=== PATIENT | female | born 1990 | race Caucasian/White ===

== ENCOUNTER 2017-12-13 07:12 | Emergency (ER) | payer OTHER ==
[2017-12-13] MEDS ORDERED: Lactated Ringers 1,000 ML IV ONE (07:24)
[2017-12-13] MEDS ORDERED: Ondansetron 4 MG/2 ML SDV IVPUSH ONE (07:25)
[2017-12-13] MEDS ORDERED: Ketorolac 30 MG/ML SDV IVPUSH ONE (07:25)
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
[2017-12-13 08:46] LABS: CHLORIDE,CL 105 mmol/L (98-107); SODIUM,NA 140 mmol/L (136-145)
--- NOTE | 2017-12-13 09:46 | CR ---
EXAMINATION: Portable chest radiograph. HISTORY: Shortness of breath. FINDINGS: The trachea is midline. The cardiomediastinal silhouette is within normal limits. No pulmonary infilt rates, effusions or pneumothorax. Osseous structures appear unremarkable. IMPRESSION: No acute cardiopulmonary process.
--- NOTE | 2017-12-13 09:52 | CT ---
EXAMINATION: Non contrast CT head. Coronal and sagittal reformats. HISTORY: Pain FINDINGS: No evidence of intra or extra axial hemorrhage, mass, midline shift, hydrocephalus or edema. No hypoattenuation changes in the major vascular territories to suggest acute infarct. No abnormal intracranial calcifications are detected. No evidence of substantial vascular calcificat ions. Paranasal sinuses and mastoid air cells are well aerated without substantial findings. Orbits and gl obes are symmetric. Moderate rightward deviation of the nasal septum with prominent shaunna bullosa wi thin the left turbinates. Pituitary fossa appears unremarkable. Calvarium is intact. No evidence of skull fracture. IMPRESSION: No acute intracranial findings.
--- NOTE | 2017-12-13 09:56 | CT ---
EXAMINATION: CT cervical spine HISTORY: Pain COMPARISON: None TECHNIQUE: Axial CT images obtained through the cervical spine without contrast. Coronal and sagittal reconstructions obtained. FINDINGS: The cervical spinal alignment is normal. The vertebral body heights and disc spaces appear well-maintained. There is no fracture or acute osseous abnormality. Bone mineralization and joint spa melva appear normal. Paravertebral soft tissues appear normal. Lung apices are clear. IMPRESSION: 1. Unremarkable cervical spine.
== END 2017-12-13 10:25 | disposition home or self-care (01) ==
LOC: MW.ED 07:12
DX: M62.838 Other muscle spasm (principal); R51 Headache; V59.9XXA Occupant (driver) (passenger) of pick-up truck or van injured in unspecified traffic accident, initial encounter
CPT/HCPCS: 36415; 70450; 71045; 72125; 80053; 81001; 81025; 85025; 96365; 96375; 99284; J1885; J2405; J7120; 99283

== ENCOUNTER 2020-01-04 06:08 | Emergency (ER) | payer SELFPAY ==
--- NOTE | 2020-01-04 06:41 | EDM.PDOC ---
ED HPI GENERAL MEDICAL PROBLEM - General Chief Complaint: Drug or Alcohol Abuse Stated Complaint: AMB Time Seen by Provider: 01/04/20 06:22 Source of Information: Reports: Patient, [employer] History Limitations: Reports: No Limitations - History of Present Illness Severity: Mild - Related Data Allergies Allergy/AdvReac Type Severity Reaction Status Date / Time No Known Allergies Allergy Verified 01/04/20 06:21 Home Meds: Home Meds . 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 Musculoskeletal History: Reports: None Neurological History: Reports: None Psychiatric History: Reports: None Endocrine/Metabolic History: Reports: None Hematologic History: Reports: None Immunologic History: Reports: None Oncologic (Cancer) History: Reports: None Dermatologic History: Reports: None - Infectious Disease History Infectious Disease History: Reports: None - Past Surgical History Head Surgeries/Procedures: Reports: None Social & Family History - Family History Family Medical History: Noncontributory - Tobacco Use Smoking Status *Q: Never Smoker - Caffeine Use Caffeine Use: Reports: None - Recreational Drug Use Recreational Drug Use: No ED ROS GENERAL - Review of Systems Review Of Systems: See Below Constitutional: Reports: No Symptoms HEENT: Reports: No Symptoms Respiratory: Reports: No Symptoms Cardiovascular: Reports: No Symptoms Endocrine: Reports: No Symptoms GI/Abdominal: Reports: No Symptoms : Reports: No Symptoms Musculoskeletal: Reports: No Symptoms Skin: Reports: No Symptoms Neurological: Reports: No Symptoms Psychiatric: Reports: No Symptoms Hematologic/Lymphatic: Reports: No Symptoms Immunologic: Reports: No Symptoms - Physical Exam Exam: See Below Exam Limited By: No Limitations General Appearance: Alert, WD/WN, No Apparent Distress Eye Exam: Bilateral Eye: Normal Fundi, Normal Inspection Ears: Normal External Exam, Normal Canal, Normal TMs Nose: Normal Inspection, Normal Mucosa Throat/Mouth: Normal Inspection, Normal Lips Head Exam: Atraumatic, Normocephalic Neck: Normal Inspection Respiratory/Chest: No Respiratory Distress, Lungs Clear, No Accessory Muscle Use Cardiovascular: Normal Peripheral Pulses, No JVD GI/Abdominal: Normal Bowel Sounds Neuro Exam (Abbreviated): Alert, Oriented, CN II-XII Intact Back Exam: Normal Inspection, Full Range of Motion Extremities: Normal Inspection, Normal Range of Motion Psychiatric: Normal Affect, Normal Mood Skin Exam: Warm, Intact Course - Vital Signs Last Recorded V/S: Last Vital Signs Temp 98.1 F 01/04/20 06:22 Pulse 81 01/04/20 06:43 Resp 14 01/04/20 06:43 BP 113/72 01/04/20 06:43 Pulse Ox 96 01/04/20 06:43 - Orders/Labs/Meds Orders: Active Orders 24 hr Category Date Time Status EKG Documentation Completion [RC] STAT Care 01/04/20 06:31 Active Labs: Laboratory Tests 01/04/20 01/04/20 01/04/20 Range/Units 06:38 06:38 06:38 WBC 7.38 (4.0-11.0) K/uL RBC 4.09 L (4.30-5.90) M/uL Hgb 12.3 (12.0-16.0) g/dL Hct 37.6 (36.0-46.0) % MCV 91.9 (80.0-98.0) fL MCH 30.1 (27.0-32.0) pg MCHC 32.7 (31.0-37.0) g/dL RDW Std Deviation 42.1 (28.0-62.0) fl RDW Coeff of Zaira 12 (11.0-15.0) % Plt Count 267 (150-400) K/uL MPV 10.10 (7.40-12.00) fL Neut % (Auto) 64.2 (48.0-80.0) % Lymph % (Auto) 24.3 (16.0-40.0) % [place] % (Auto) 6.8 (0.0-15.0) % Eos % (Auto) 4.2 (0.0-7.0) % Baso % (Auto) 0.5 (0.0-1.5) % Neut # (Auto) 4.7 (1.4-5.7) K/uL Lymph # (Auto) 1.8 (0.6-2.4) K/uL [place] # (Auto) 0.5 (0.0-0.8) K/uL Eos # (Auto) 0.3 (0.0-0.7) K/uL Baso # (Auto) 0.0 (0.0-0.1) K/uL Nucleated RBC % 0.0 /100WBC Nucleated RBCs # 0 K/uL Sodium 140 (136-145) mmol/L Potassium 3.7 (3.5-5.1) mmol/L Chloride 105 (98-107) mmol/L Carbon Dioxide 24.4 (21.0-32.0) mmol/L BUN 9 (7.0-18.0) mg/dL Creatinine 0.6 (0.6-1.0) mg/dL Est Cr Clr Drug Dosing TNP Estimated GFR (MDRD) > 60.0 ml/min Glucose 107 H (74-106) mg/dL Calcium 8.6 (8.5-10.1) mg/dL Total Bilirubin 0.6 (0.2-1.0) mg/dL AST 12 L (15-37) IU/L ALT 19 (14-63) IU/L Alkaline Phosphatase 51 (46-116) U/L Total Protein 6.9 (6.4-8.2) g/dL Albumin 3.6 (3.4-5.0) g/dL Globulin 3.3 (2.6-4.0) g/dL Albumin/Globulin Ratio 1.1 (0.9-1.6) HCG, Qual NEGATIVE (NEG) Salicylates 0.6 (0-20) mg/dL Acetaminophen <2.0 ug/mL Ethyl Alcohol <3 mg/dL Departure - Departure Time of Disposition: 07:17 Disposition: Home, Self-Care 01 Condition: Good Clinical Impression: Alcohol abuse - Discharge Information Referrals: PCP,None [Primary Care Provider] - Forms: ED Department Discharge Sepsis Event Note - Evaluation Sepsis Screening Result: No Definite Risk - Focused Exam Vital Signs: Vital Signs Temp Pulse Resp BP Pulse Ox 01/04/20 06:43 81 14 113/72 96 01/04/20 06:22 98.1 F 82 14 116/69 98 Date Exam was Performed: 01/04/20 Time Exam was Performed: 07:16 - My Orders Last 24 Hours: My Active Orders 01/04/20 06:31 EKG Documentation Completion [RC] STAT - Assessment/Plan Last 24 Hours: My Active Orders 01/04/20 06:31 EKG Documentation Completion [RC] STAT
[2020-01-04 07:10] LABS: BLOOD UREA NITROGEN,BUN 9 mg/dL (7.0-18.0); CARBON DIOXIDE,CO2 24.4 mmol/L (21.0-32.0); CHLORIDE,CL 105 mmol/L (98-107); GLUCOSE RANDOM 107 mg/dL (74-106); POTASSIUM,K 3.7 mmol/L (3.5-5.1); SODIUM,NA 140 mmol/L (136-145)
[2020-01-04 07:12] LABS: ACETAMINOPHEN <2.0 ug/mL
== END 2020-01-04 07:25 | disposition home or self-care (01) ==
LOC: MW.ED 06:08
DX: F10.10 Alcohol abuse, uncomplicated (principal)
CPT/HCPCS: 36415; 80053; 80307; 84703; 85025; 93005; 99283; 99284-25

== ENCOUNTER 2020-04-16 19:25 | Emergency (ER) | payer BC, OTHER ==
--- NOTE | 2020-04-16 19:52 | EDM.PDOC ---
ED HPI GENERAL MEDICAL PROBLEM - General Chief Complaint: Respiratory Problem Stated Complaint: SPOKE TO NURSE Time Seen by Provider: 04/16/20 19:28 Source of Information: Reports: Patient History Limitations: Reports: No Limitations - History of Present Illness INITIAL COMMENTS - FREE TEXT/NARRATIVE: HISTORY AND PHYSICAL: History of present illness: Patient is a 29-year-old female who presents to the emergency room today with complaints of sore throat, subjective fever and chills, body aches and shortness of breath. She states last week she and her had went to [place] and had been around multiple family members. She was informed a few days ago that 1 of those family members tested positive for COVID-19. 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 Patient denies any headache, change in vision, syncope or near syncope. Denies any chest pain, back pain or cough. Denies any abdominal pain, nausea, vomiting, diarrhea, constipation or dysuria. Denies any chance of . Patient has been eating and drinking appropriately. Review of systems: As per history of present illness and below otherwise all systems reviewed and negative. Past medical history: As per history of present illness and as reviewed below otherwise noncontr ibutory. Surgical history: As per history of present illness and as reviewed below otherwise noncontributory. Social history: See social history for further information Family history: As per history of present illness and as reviewed below otherwise noncontributory. Physical exam: General: Well-developed and well-nourished 29-year-old female. Alert and oriented. Nontoxic-appearing and in no acute distress. Vital signs are stable and have been reviewed by me. HEENT: Atraumatic, normocephalic, pupils equal and reactive bilaterally, negative for conjunctival pallor or scleral icterus, mucous membranes moist, TMs normal bilaterally, throat erythematous without exudate or soft tissue swelling, neck supple, nontender, trachea midline. No drooling or trismus noted. No meningeal signs. No hot potato voice noted. Lungs: Clear to auscultation, breath sounds equal bilaterally, chest nontender. Heart: S1S2, regular rate and rhythm without overt murmur Abdomen: Soft, nondistended, nontender. Skin: Intact, warm, dry. No lesions or rashes noted. Extremities: Atraumatic, moves all extremities per self without difficulty or deficits, negative for cords or calf pain. Neurovascular unremarkable. Neuro: Awake, alert, oriented. Cranial nerves II through XII unremarkable. Cerebellum unremarkable. Motor and sensory unremarkable throughout. Exam nonfocal. Notes: Patient's physical exam is generally unremarkable with the exception of mild erythema to the posterior oropharynx. Her diagnostics are negative. We discussed the need for follow-up. Patient is appropriate for discharge to home. Supportive care measures were reviewed and discussed. Voices understanding and is agreeable to plan of care. Denies any further questions or concerns at this time. Diagnostics: Chest x-ray, strep, COVID-19 Therapeutics: None Prescription: None Impression: Pharyngitis Encounter for COVID-19 testing Plan: 1. Your chest x-ray, Strep Screening and COVID-19 screening all were negative. Please continue to perform supportive care measures such as increasing your fluids, alternating Tylenol and ibuprofen and getting plenty of rest. 2. Follow-up with your primary care provider as we discussed. 3. Return to the emergency room as needed and as discussed. Definitive disposition and diagnosis as appropriate pending reevaluation and review of above. - Related Data Allergies Allergy/AdvReac Type Severity Reaction Status Date / Time No Known Allergies Allergy Verified 04/16/20 19:42 Home Meds: Home Meds . [No Known Home Meds] 12/13/17 [History] Past Medical History - Past Health History Medical/Surgical History: Denies Medical/Surgical History HEENT History: Reports: None Cardiovascular History: Reports: None Respiratory History: Reports: None Gastrointestinal History: Reports: None Genitourinary History: Reports: None MEDICATION SPECIALIST History: Reports: None Musculoskeletal History: Reports: None Neurological History: Reports: None Psychiatric History: Reports: None Endocrine/Metabolic History: Reports: None Hematologic History: Reports: None Immunologic History: Reports: None Oncologic (Cancer) History: Reports: None Dermatologic History: Reports: None - Infectious Disease History Infectious Disease History: Reports: None - Past Surgical History Head Surgeries/Procedures: Reports: None Social & Family History - Family History Family Medical History: Noncontributory - Tobacco Use Smoking Status *Q: Never Smoker Second Hand Smoke Exposure: No - Caffeine Use Caffeine Use: Reports: None - Recreational Drug Use Recreational Drug Use: No ED ROS GENERAL - Review of Systems Review Of Systems: Comprehensive ROS is negative, except as noted in HPI. ED EXAM, GENERAL - Physical Exam Exam: See Below (See dictation) Course - Vital Signs Last Recorded V/S: Last Vital Signs Temp 97.6 F 04/16/20 19:37 Pulse 80 04/16/20 19:37 Resp 18 04/16/20 19:37 BP 116/72 04/16/20 19:37 Pulse Ox 98 04/16/20 19:37 - Orders/Labs/Meds Orders: Active Orders 24 hr Category Date Time Status CULTURE STREP A CONFIRMATION [RM] Stat Lab 04/16/20 19:57 Results STREP SCRN A RAPID W CULT CONF [RM] Stat Lab 04/16/20 19:57 Results Labs: Laboratory Tests 04/16/20 Range/Units 19:57 COVID-19 (RISHI) NEGATIVE (NEGATIVE) Departure - Departure Time of Disposition: 20:27 Disposition: Home, Self-Care 01 Clinical Impression: Encounter for screening laboratory testing for COVID-19 virus Pharyngitis Qualifiers: Pharyngitis/tonsillitis etiology: unspecified etiology Qualified Code(s): J02.9 - Acute pharyngitis, unspecified - Discharge Information Instructions: Pharyngitis, [id number] Referrals: PCP,None [Primary Care Provider] - Forms: ED Department Discharge Additional Instructions: The following information is given to patients seen in the emergency department who are being discharged to home. This information is to outline your options for follow-up care. We provide all patients seen in our emergency department with a follow-up referral. The need for follow-up, as well as the timing and circumstances, are variable depending upon the specifics of your emergency department visit. If you don't have a primary care physician on staff, we will provide you with a referral. We always advise you to contact your personal physician following an emergency department visit to inform them of the circumstance of the visit and for follow-up with them and/or the need for any referrals to a consulting specialist. The emergency department will also refer you to a specialist when appropriate. This referral assures that you have the opportunity for follow-up care with a specialist. All of these measure are taken in an effort to provide you with optimal care, which includes your follow-up. Under all circumstances we always encourage you to contact your private physician who remains a resource for coordinating your care. When calling for follow-up care, please make the office aware that this follow-up is from your recent emergency room visit. If for any reason you are refused follow-up, please contact the [facility] Emergency Department at and asked to speak to the emergency department charge nurse. [facility] [address] [place] [address] [facility] [address] [place] [address] Thank you for choosing the [facility] emergency department in [place] for your medical needs today. It was a pleasure caring for you. You were seen in the emergency department for body aches, sore throat, shortness of breath and requesting a COVID-19 screening. 1. Your chest x-ray, Strep Screening and COVID-19 screening all were negative. Please continue to perform supportive care measures such as increasing your fluids, alternating Tylenol and ibuprofen and getting plenty of rest. 2. Follow-up with your primary care provider as we discussed. 3. Return to the emergency room as needed and as discussed. Sepsis Event Note (ED) - Evaluation Sepsis Screening Result: No Definite Risk - Focused Exam Vital Signs: Vital Signs Temp Pulse Resp BP Pulse Ox 04/16/20 19:37 97.6 F 80 18 116/72 98 - My Orders Last 24 Hours: My Active Orders 04/16/20 19:57 CULTURE STREP A CONFIRMATION [RM] Stat STREP SCRN A RAPID W CULT CONF [RM] Stat - Assessment/Plan Last 24 Hours: My Active Orders 04/16/20 19:57 CULTURE STREP A CONFIRMATION [RM] Stat STREP SCRN A RAPID W CULT CONF [] Stat
--- NOTE | 2020-04-16 20:14 | CR ---
Chest: Portable view of the chest was obtained. Comparison: Prior chest x-ray of 12/13/17. Heart size and mediastinum are normal. Lungs are clear with no acute parenchymal change. Bony structures are grossly intact. Impression: 1. Nothing acute is seen on portable chest x-ray. Diagnostic code #1 This report was dictated in MDT
== END 2020-04-16 20:44 | disposition home or self-care (01) ==
LOC: MW.ED 19:25
DX: J02.9 Acute pharyngitis, unspecified (principal); Z20.828 Contact with and (suspected) exposure to other viral communicable diseases
CPT/HCPCS: 71045; 71045-26; 87081; 87880-QW; 99283-25; U0002

== ENCOUNTER 2020-10-07 18:54 | Emergency (ER) | payer BC ==
--- NOTE | 2020-10-07 19:23 | EDM.PDOC ---
ED HPI GENERAL MEDICAL PROBLEM - General Chief Complaint: General Stated Complaint: POSSIBLE COVID Time Seen by Provider: 10/07/20 18:58 Source of Information: Reports: Patient History Limitations: Reports: No Limitations - History of Present Illness INITIAL COMMENTS - FREE TEXT/NARRATIVE: HISTORY AND PHYSICAL: History of present illness: Patient is a 30-year-old female who presents to the emergency room requested COVID-19 screening. She states yesterday her tested positive for COVID- 19 and she is concerned due to her exposure like she may have it as well. 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 Patient denies any fever, chills, headache, change in vision, syncope or near syncope. Denies any chest pain, back pain, shortness of breath or cough. Denies any abdominal pain, nausea, vomiting, diarrhea, constipation or dysuria. Denies any vaginal bleeding, discharge, or back pain/cramping. Patient has been eating and drinking appropriately. Review of systems: As per history of present illness and below otherwise all systems reviewed and negative. Past medical history: As per history of present illness and as reviewed below otherwise noncontributory. Surgical history: As per history of present illness and as reviewed below otherwise noncontributory. Social history: See social history for further information Family history: As per history of present illness and as reviewed below otherwise noncontributory. Physical exam: General: Well developed and well nourished. Alert and orientated x 3. Nontoxic in appearance and in no acute distress. Vital signs are stable and have been reviewed by me. Nursing notes were reviewed. HEENT: Atraumatic, normocephalic, pupils equal and reactive bilaterally, negative for conjunctival pallor or scleral icterus, mucous membranes moist, trachea midline. No drooling or trismus noted. No meningeal signs. No hot potato voice noted. Lungs: Clear to auscultation, breath sounds equal bilaterally. Normal work of breathing, no accessory muscles used. Heart: S1S2, regular rate and rhythm without overt murmur Abdomen: Soft, abdomen, nontender. Skin: Intact, warm, dry. No lesions or rashes noted. Hematologic: No petechiae or purpra. Mucosa appropriate color and normal nail bed color and refill. Extremities: Atraumatic, moves all extremities per self without difficulty or deficits, negative for cords or calf pain. Neurovascular unremarkable. Neuro: Awake, alert, oriented. Cranial nerves II through XII unremarkable. Cerebellum unremarkable. Motor and sensory unremarkable throughout. Exam nonfocal. Psychiatric: Mood and affect are appropriate. Normal thought process. Answering questions appropriately. Notes: FHT 166. She denies any current systemic or BOILER ASSISTANT OPERATOR complaints or concerns. Negative COVID-19 testing, but she is a close contact so needs to quarantine. I have talked with the patient about today's findings, in addition to providing specific details for plan of care. Reassessment at the time of disposition demonstrates that the patient is in no acute distress. The patient is stable for discharge, counseling was provided and we discussed in great detail signs and symptoms that would prompt them to return to the Emergency Department. Medication, follow up and supportive care measures were reviewed and discussed. Voices understanding and is agreeable to plan of care. Denies any further questions or concerns at this time. Diagnostics: COVID-19 Therapeutics: None Prescription: None Impression: Encounter for COVID-19 screening/testing Plan: 1. Your COVID-19 screening is negative. Since you are considered a household contact - YOU HAVE TO QUARANTINE for 14 days. That means you are not allowed to attend work or leave the house for unnecessary trips. 2. COVID-19 testing is not 100% accurate, so if you have symptoms that continue that lead you to believe you have COVID, you can get re-tested in a few days at our respiratory clinic. 3. Tylenol as needed for pain and fever management. 4. The [place] COVID 19 Hotline phone number , They are open Monday - Monday 7am - 7pm. 5. Follow up with your primary care provider for re-evaluation and if your symptoms should worsen, new symptoms develop or you feel like you are not improving you are always welcome to return to the emergency room. Definitive disposition and diagnosis as appropriate pending reevaluation and review of above. - Related Data Allergies Allergy/AdvReac Type Severity Reaction Status Date / Time No Known Allergies Allergy Verified 10/07/20 19:09 Home Meds: Home Meds . [No Known Home Meds] 12/13/17 [History] Past Medical History - Past Health History Medical/Surgical History: Denies Medical/Surgical History HEENT History: Reports: None Cardiovascular History: Reports: None Respiratory History: Reports: None Gastrointestinal History: Reports: None Genitourinary History: Reports: None BOILER ASSISTANT OPERATOR History: Reports: Musculoskeletal History: Reports: None Neurological History: Reports: None Psychiatric History: Reports: None Endocrine/Metabolic History: Reports: None Hematologic History: Reports: None Immunologic History: Reports: None Oncologic (Cancer) History: Reports: None Dermatologic History: Reports: None - Infectious Disease History Infectious Disease History: Reports: None - Past Surgical History Head Surgeries/Procedures: Reports: None Cardiovascular Surgical History: Reports: None Social & Family History - Family History Family Medical History: No Pertinent Family History - Caffeine Use Caffeine Use: Reports: None - Recreational Drug Use Recreational Drug Use: No ED ROS GENERAL - Review of Systems Review Of Systems: Comprehensive ROS is negative, except as noted in HPI. ED EXAM, GENERAL - Physical Exam Exam: See Below (See dictation) Course - Vital Signs Last Recorded V/S: Last Vital Signs Temp 98 F 10/07/20 19:02 Pulse 71 10/07/20 19:55 Resp 18 10/07/20 19:55 BP 94/64 10/07/20 19:55 Pulse Ox 100 10/07/20 19:55 - Orders/Labs/Meds Orders: Active Orders 24 hr Category Date Time Status Heart Tones [ Heart Rate] [RC] Click to Edit Care 10/07/20 19:51 Active Labs: Laboratory Tests 10/07/20 Range/Units 19:15 SARS-CoV-2 RNA (RISHI) NEGATIVE (NEGATIVE) Departure - Departure Time of Disposition: 20:34 Disposition: Home, Self-Care 01 Clinical Impression: Encounter for screening laboratory testing for COVID-19 virus - Discharge Information Referrals: PCP,None [Primary Care Provider] - Forms: ED Department Discharge Additional Instructions: The following information is given to patients seen in the emergency department who are being discharged to home. This information is to outline your options for follow-up care. We provide all patients seen in our emergency department with a follow-up referral. The need for follow-up, as well as the timing and circumstances, are variable depending upon the specifics of your emergency department visit. If you don't have a primary care physician on staff, we will provide you with a referral. We always advise you to contact your personal physician following an emergency department visit to inform them of the circumstance of the visit and for follow-up with them and/or the need for any referrals to a consulting specialist. The emergency department will also refer you to a specialist when appropriate. This referral assures that you have the opportunity for follow-up care with a specialist. All of these measure are taken in an effort to provide you with optimal care, which includes your follow-up. Under all circumstances we always encourage you to contact your private physician who remains a resource for coordinating your care. When calling for follow-up care, please make the office aware that this follow-up is from your recent emergency room visit. If for any reason you are refused follow-up, please contact the [facility] Emergency Department at and asked to speak to the emergency department charge nurse. [facility] [address] [place] [address] [id number] [address] [address] Thank you for choosing the [facility] emergency department in [place] for your medical needs today. It was a pleasure caring for you. Today you were seen in the emergency department for COVID-19 screening/testing. 1. Your COVID-19 screening is negative. Since you are considered a household contact - YOU HAVE TO QUARANTINE for 14 days. That means you are not allowed to attend work or leave the house for unnecessary trips. 2. COVID-19 testing is not 100% accurate, so if you have symptoms that continue that lead you to believe you have COVID, you can get re-tested in a few days at our respiratory clinic. 3. Tylenol as needed for pain and fever management. 4. The [place] COVID 19 Hotline phone number , They are open Monday - Monday 7am - 7pm. 5. Follow up with your primary care provider for re-evaluation and if your symptoms should worsen, new symptoms develop or you feel like you are not improving you are always welcome to return to the emergency room. Sepsis Event Note (ED) - Evaluation Sepsis Screening Result: No Definite Risk - Focused Exam Vital Signs: Vital Signs Temp Pulse Resp BP Pulse Ox 10/07/20 19:55 71 18 94/64 100 10/07/20 19:02 98 F 95 16 101/54 L 100 - My Orders Last 24 Hours: My Active Orders 10/07/20 19:51 Heart Tones [ Heart Rate] [RC] Click to Edit - Assessment/Plan Last 24 Hours: My Active Orders 10/07/20 19:51 Heart Tones [ Heart Rate] [RC] Click to Edit
== END 2020-10-07 20:45 | disposition home or self-care (01) ==
LOC: MW.ED 18:54
DX: Z20.822 Contact with and (suspected) exposure to COVID-19 (principal); Z3A.24 24 weeks gestation of pregnancy
CPT/HCPCS: 99282; 99283; U0002

== ENCOUNTER 2020-11-05 11:40 | Observation (INO) | payer BC ==
--- NOTE | 2020-11-05 11:47 | EDM.PDOC ---
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 Patient is a 30-year-old female, who is 27 weeks in gestation, who [facility] for concern of syncopal event that occurred at the clinic. From EMS/nursing staff at [facility] was that patient was sitting on the exam table, and she has been complaining of left lower abdominal/vaginal discomfort. They state that they were in their triage process when patient had a syncopal event and was lowered to the floor. They state that patient was "pulseless "and not breathing and they did a sternal rub and patient woke up. Upon arrival, patient is alert, oriented, and breathing comfortably and well-appearing. Patient states that she has been having left lower quadrant abdominal pain over the last 1 week and states that it comes and goes. Patient states when she has the episode of abdominal pain, she feels a discomfort in her vagina. She states that she has had a change in vaginal discharge. Patient states that she has had a similar episode of near syncope in the past and felt like her blood sugar was low and they feeling subsided after eating. Patient's blood sugar was [address] Quiros, patients OBGYN provider, is at bedside along with myself in the ED. Patient denies fever, chills, chest pain, shortness of breath, or cough. Denies headache, neck stiff ness, change in vision. Denies nausea, vomiting, diarrhea, constipation, or dysuria. Has not noted any blood in urine or stool. Patient has been eating and drinking appropriately. Review of systems: As per history of present illness and below otherwise all systems reviewed and negative. Past medical history: As per history of present illness and as reviewed below otherwise noncontributory. Surgical history: As per history of present illness and as reviewed below otherwise noncontributory. Social history: See social history for further information Family history: As per history of present illness and as reviewed below otherwise noncontributory. Physical exam: General: Patient is alert, oriented, and in no acute distress. Patient laying comfortably on exam table. Vitals stable and reviewed by me. HEENT: Atraumatic, normocephalic, pupils equal and reactive bilaterally, negative for conjunctival pallor or scleral icterus, mucous membranes moist, TMs normal bilaterally, throat clear, neck supple, nontender, trachea midline. No drooling or trismus noted. No meningeal signs. No hot potato voice noted. Lungs: Clear to auscultation, breath sounds equal bilaterally, chest nontender. Heart: S1S2, regular rate and rhythm without overt murmur Abdomen: Gravid, mild-moderate LLQ tenderness without guarding. Negative for masses or hepatosplenomegaly. Negative for costovertebral tenderness. Pelvis: Stable nontender. Genitourinary: Deferred. (Peformed by MILENA Burrell at bedside) Rectal: Deferred. Skin: Intact, warm, dry. No lesions or rashes noted. Extremities: Atraumatic, negative for cords or calf pain. Neurovascular unremarkable. Neuro: Awake, alert, oriented. Cranial nerves II through XII unremarkable. Cerebellum unremarkable. Motor and sensory unremarkable throughout. Exam nonfocal. Notes: FHT at bedside 150. Upon reevaluation of patient, she remains well-appearing, nontoxic, in no acute distress. Patient remains vitally stable throughout stay in ED. Dr. Quiros is at bedside and will transfer patient to labor and delivery for additional monitoring to Dr. Quiros Voices understanding and is agreeable to plan of care. Denies any further questions or concerns at this time. Diagnostics: EKG, CBC, CMP, UA, UDS, Acetaminophen, lipase, Trop, Retroperitoneal US, 2nd trimester growth US, G&C, Affirm, Amnisure Therapeutics: NS Prescription: None Impression: Syncope Left lower abdominal pain in , 27 weeks Dehydration Elvi vaginitis Transaminitis Plan: Transfer to Labor and Delivery for additional monitoring to MILENA Burrell (Still a patient) Definitive disposition and diagnosis as appropriate pending reevaluation and review of above. 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 History: Reports: Musculoskeletal History: Reports: None Neurological History: Reports: None Psychiatric History: Reports: None Endocrine/Metabolic History: Reports: None Hematologic History: Reports: None Immunologic History: Reports: None Oncologic (Cancer) History: Reports: None Dermatologic History: Reports: None - Infectious Disease History Infectious Disease History: Reports: None - Past Surgical History Head Surgeries/Procedures: Reports: None Cardiovascular Surgical History: Reports: None Social & Family History - Family History Family Medical History: No Pertinent Family History - Caffeine Use Caffeine Use: Reports: None ED ROS GENERAL - Review of Systems Review Of Systems: Comprehensive ROS is negative, except as noted in HPI. ED EXAM, GENERAL - Physical Exam Exam: See Below (see dictation) Course - Vital Signs Last Recorded V/S: Last Vital Signs Temp 97.1 F 11/05/20 11:43 Pulse 98 11/05/20 11:43 Resp 18 11/05/20 11:43 BP 96/57 L 11/05/20 11:43 Pulse Ox 99 11/05/20 11:43 - Orders/Labs/Meds Orders: Active Orders 24 hr Category Date Time Status CHLAMYDIA AND GONORRHEA BY TMA Stat Lab 11/05/20 12:22 Received Sodium Chloride 0.9% [Saline Flush] Med 11/05/20 11:58 Active 10 ml FLUSH ASDIRECTED PRN Sodium Chloride 0.9% [Saline Flush] Med 11/05/20 11:58 Active 2.5 ml FLUSH ASDIRECTED PRN Saline Lock Insert [OM.PC] Stat Oth 11/05/20 11:58 Ordered Medication Orders Hydroxyzine Pamoate (Vistaril) 25 mg PO Q6H PRN PRN Reason: Pain Lactated Ringer's (Ringers, Lactated) 1,000 mls @ 125 mls/hr IV ASDIRECTED KJ Sodium Chloride (Saline Flush) 10 ml FLUSH ASDIRECTED PRN PRN Reason: Keep Vein Open Sodium Chloride (Saline Flush) 2.5 ml FLUSH ASDIRECTED PRN PRN Reason: Keep Vein Open Labs: Laboratory Tests 11/05/20 11/05/20 11/05/20 Range/Units 12:22 12:22 12:47 WBC 11.25 H (4.0-11.0) K/uL RBC 3.58 L (4.30-5.90) M/uL Hgb 11.1 L (12.0-16.0) g/dL Hct 33.8 L (36.0-46.0) % MCV 94.4 (80.0-98.0) fL MCH 31.0 (27.0-32.0) pg MCHC 32.8 (31.0-37.0) g/dL RDW Std Deviation 44.9 (28.0-62.0) fl RDW Coeff of Zaira 13 (11.0-15.0) % Plt Count 269 (150-400) K/uL MPV 9.60 (7.40-12.00) fL Neut % (Auto) 71.6 (48.0-80.0) % Lymph % (Auto) 16.4 (16.0-40.0) % [place] % (Auto) 7.1 (0.0-15.0) % Eos % (Auto) 4.7 (0.0-7.0) % Baso % (Auto) 0.2 (0.0-1.5) % Neut # (Auto) 8.1 H (1.4-5.7) K/uL Lymph # (Auto) 1.9 (0.6-2.4) K/uL [place] # (Auto) 0.8 (0.0-0.8) K/uL Eos # (Auto) 0.5 (0.0-0.7) K/uL Baso # (Auto) 0.0 (0.0-0.1) K/uL Nucleated RBC % 0.0 /100WBC Nucleated RBCs # 0 K/uL Sodium (136-145) mmol/L Potassium (3.5-5.1) mmol/L Chloride (98-107) mmol/L Carbon Dioxide (21.0-32.0) mmol/L BUN (7.0-18.0) mg/dL Creatinine (0.6-1.0) mg/dL Est Cr Clr Drug Dosing mL/min Estimated GFR (MDRD) ml/min Glucose (74-106) mg/dL Calcium (8.5-10.1) mg/dL Total Bilirubin (0.2-1.0) mg/dL AST (15-37) IU/L ALT (14-63) IU/L Alkaline Phosphatase (46-116) U/L Troponin I (0.000-0.056) ng/mL Total Protein (6.4-8.2) g/dL Albumin (3.4-5.0) g/dL Globulin (2.6-4.0) g/dL Albumin/Globulin Ratio (0.9-1.6) Lipase (73-393) U/L Membrane Rupture NEGATIVE Elvi species DNA POSITIVE H (NEGATIVE) Gardnerella DNA Probe NEGATIVE (NEGATIVE) Trichomonas DNA Probe NEGATIVE (NEGATIVE) 11/05/20 Range/Units 12:47 WBC (4.0-11.0) K/uL RBC (4.30-5.90) M/uL Hgb (12.0-16.0) g/dL Hct (36.0-46.0) % MCV (80.0-98.0) fL MCH (27.0-32.0) pg MCHC (31.0-37.0) g/dL RDW Std Deviation (28.0-62.0) fl RDW Coeff of Zaira (11.0-15.0) % Plt Count (150-400) K/uL MPV (7.40-12.00) fL Neut % (Auto) (48.0-80.0) % Lymph % (Auto) (16.0-40.0) % [place] % (Auto) (0.0-15.0) % Eos % (Auto) (0.0-7.0) % Baso % (Auto) (0.0-1.5) % Neut # (Auto) (1.4-5.7) K/uL Lymph # (Auto) (0.6-2.4) K/uL [place] # (Auto) (0.0-0.8) K/uL Eos # (Auto) (0.0-0.7) K/uL Baso # (Auto) (0.0-0.1) K/uL Nucleated RBC % /100WBC Nucleated RBCs # K/uL Sodium 138 (136-145) mmol/L Potassium 4.1 (3.5-5.1) mmol/L Chloride 104 (98-107) mmol/L Carbon Dioxide 23.9 (21.0-32.0) mmol/L BUN 6 L (7.0-18.0) mg/dL Creatinine 0.5 L (0.6-1.0) mg/dL Est Cr Clr Drug Dosing 119.25 mL/min Estimated GFR (MDRD) > 60.0 ml/min Glucose 94 (74-106) mg/dL Calcium 8.8 (8.5-10.1) mg/dL Total Bilirubin 0.3 (0.2-1.0) mg/dL AST 42 H (15-37) IU/L ALT 66 H (14-63) IU/L Alkaline Phosphatase 88 (46-116) U/L Troponin I < 0.050 (0.000-0.056) ng/mL Total Protein 6.2 L (6.4-8.2) g/dL Albumin 2.5 L (3.4-5.0) g/dL Globulin 3.7 (2.6-4.0) g/dL Albumin/Globulin Ratio 0.7 L (0.9-1.6) Lipase 94 (73-393) U/L Membrane Rupture Elvi species DNA (NEGATIVE) Gardnerella DNA Probe (NEGATIVE) Trichomonas DNA Probe (NEGATIVE) Meds: Medications Generic Name Dose Route Start Last Admin Trade Name Freq PRN Reason Stop Dose Admin Hydroxyzine Pamoate 25 mg 11/05/20 14:32 Vistaril PO Q6H PRN Pain Lactated Ringer's 1,000 mls @ 125 mls/hr 11/05/20 14:45 Ringers, Lactated IV ASDIRECTED KJ Sodium Chloride 10 ml 11/05/20 11:58 Saline Flush FLUSH ASDIRECTED PRN Keep Vein Open Sodium Chloride 2.5 ml 11/05/20 11:58 Saline Flush FLUSH ASDIRECTED PRN Keep Vein Open Discontinued Medications Generic Name Dose Route Start Last Admin Trade Name Freq PRN Reason Stop Dose Admin Fluconazole 100 mg 11/05/20 15:00 Diflucan PO 11/05/20 15:01 ONETIME ONE Sodium Chloride 1,000 mls @ 999 mls/hr 11/05/20 11:58 Normal Saline IV 11/05/20 12:58 BOLUS ONE Departure - Departure Time of Disposition: 11:46 Disposition: Still A Patient 30 Clinical Impression: Vaginal pain, Transaminitis, Vaginal elvi Abdominal pain Qualifiers: Abdominal location: left lower quadrant Qualified Code(s): R10.32 - Left lower quadrant pain Qualifiers: Weeks of gestation: 27 weeks Qualified Code(s): Z3A.27 - 27 weeks gestation of Syncope Qualifiers: Syncope type: unspecified Qualified Code(s): R55 - Syncope and collapse - Discharge Information Sepsis Event Note (ED) - Focused Exam Vital Signs: Vital Signs Temp Pulse Resp BP Pulse Ox 11/05/20 11:43 97.1 F 98 18 96/57 L 99 - My Orders Last 24 Hours: My Active Orders 11/05/20 11:58 Sodium Chloride 0.9% [Saline Flush] 10 ml FLUSH ASDIRECTED PRN Sodium Chloride 0.9% [Saline Flush] 2.5 ml FLUSH ASDIRECTED PRN Saline Lock Insert [OM.PC] Stat 11/05/20 12:22 CHLAMYDIA AND GONORRHEA BY TMA Stat - Assessment/Plan Last 24 Hours: My Active Orders 11/05/20 11:58 Sodium Chloride 0.9% [Saline Flush] 10 ml FLUSH ASDIRECTED PRN Sodium Chloride 0.9% [Saline Flush] 2.5 ml FLUSH ASDIRECTED PRN Saline Lock Insert [OM.PC] Stat 11/05/20 12:22 CHLAMYDIA AND GONORRHEA BY TMA Stat
[2020-11-05] MEDS ORDERED: Sodium Chloride 0.9% 10 ML Syringe FLUSH PRN (11:58)
[2020-11-05] MEDS ORDERED: Sodium Chloride 0.9% 2.5 ML Syringe FLUSH PRN (11:58)
[2020-11-05] MEDS ORDERED: Sodium Chloride 0.9% 1,000 ML IV ONE (11:58)
--- NOTE | 2020-11-05 12:04 | PCM.EKG ---
#1 Interpretation EKG Interpretation Comments: Heart rate = 81 bpm, normal sinus rhythm, normal QRS interval, no STEMI. EKG and rhythm strip interpreted by me at 1157
--- NOTE | 2020-11-05 13:09 | PCM.SN.2 ---
- Free Text/Narrative Note: Met patient in ED after transfer from [facility]. She was resting comfortably in bed, reported pain has resolved. Vital signs were stable at that time and the patient was about to has an EKG performed. Shortly after the test was performed, she was transferred to a private room for pelvic examination. LDR charge nurse arrived soon after and applied NST monitors. FHR 150s with moderate variability, no decelerations or contractions noted. Patient did not tolerate speculum exam. Amnisure, Affirm and GC/CT were obtained blindly. Cervical exam performed and cervix noted to be closed/thick/high. Patient cleared by ED physician for transfer to labor and delivery. OB growth and retroperitoneal US ordered, patient to have exams performed on labor and delivery. Anticipate overnight observation with continuous monitoring.
[2020-11-05 13:25] LABS: BLOOD UREA NITROGEN,BUN 6 mg/dL (7.0-18.0); CARBON DIOXIDE,CO2 23.9 mmol/L (21.0-32.0); CHLORIDE,CL 104 mmol/L (98-107); GLUCOSE RANDOM 94 mg/dL (74-106); LIPASE 94 U/L (73-393); POTASSIUM,K 4.1 mmol/L (3.5-5.1); SODIUM,NA 138 mmol/L (136-145)
[2020-11-05] MEDS ORDERED: hydrOXYzine Pamoate 25 MG Cap PO PRN (14:32)
--- NOTE | 2020-11-05 14:57 | US ---
Indication: Pain and discharge. Assess for abruption. Third trimester Technique: Sonography of the gravid uterus was performed. The study is limited to that which is discussed below. Comparison: There are no prior studies for comparison Findings: There is a single live intrauterine . Position is currently vertex. The total amniotic fluid volume is 11.97 centimeters which is normal. The single deepest pocket is 3.96 centimeters which is normal. heart rate averages 140 beats per minute which is normal. The placenta is fundal and anterior. There is no previa. There is no evidence for abruption by sonographic criteria. The ovaries are not seen but there is no visible adnexal mass. Cervical length was not studied. Anatomy was performed only for biometry. This is not a formal anatomic survey. BIOMETRY: BPD averages 6.9 centimeters corresponding to 27 weeks and 5 days HC averages 26.5 centimeters corresponding to 20 weeks and 6 days AC averages 23.1 centimeters corresponding to 27 weeks and 3 days FL averages 5.24 centimeters corresponding to 27 weeks and 6 days. The ultrasound estimated age is 27 weeks and 6 days and the estimated date of delivery by ultrasound is 01/29/2021. The given LMP of 04/25/2020 yields a gestational age of 27 weeks and 5 days and an estimated date of delivery of 01/30/2021. Ultrasound age is concordant with the age predicted by the LMP Impression: 1. There is no evidence of abruption. 2. There is a single live intrauterine . Position is currently vertex. Fluid volumes are normal. Heart rate is normal. 3. Anatomy was performed only for biometry. Ultrasound estimated age is 27 weeks and 6 days with an estimated date of delivery of 01/29/2021. This is concordant with the age predicted by the LMP. Dictated by Michael Baumann MD @ Nov 05 2020 2:50PM Signed by Dr. Michael Baumann @ Nov 05 2020 2:56PM
[2020-11-05] MEDS ORDERED: Fluconazole 100 MG Tab PO ONE (15:00)
--- NOTE | 2020-11-05 15:02 | US ---
Indication: Left lower quadrant pain Technique: Sonography of the kidneys was performed Comparison: None Findings: The right kidney measures 11.6 x 5.5 x 5.2 centimeters. The cortex measures 1.6 centimeters. These figures are within normal limits. There is moderate right hydronephrosis. No mass, calculus or perinephric collection. The left kidney measures 11.4 x 6.2 x 6.0 centimeters. The cortex measures 1.6 centimeters. These figures are within normal limits. There is no hydronephrosis, mass, calculus or perinephric collection Impression: Moderate RIGHT hydronephrosis. The etiology is not directed visible on the exam but is statistically most likely physiologic in a 3rd trimester . The left kidney appears normal. No specific visibly etiology for left lower quadrant abdominal pain. Dictated by Michael Baumann MD @ Nov 05 2020 2:56PM Signed by Dr. Michael Baumann @ Nov 05 2020 2:59PM
[2020-11-05] MEDS: Lactated Ringers 1,000 ML IV SCH ×2 (15:28→18:31)
--- NOTE | 2020-11-05 15:32 | PCM.SN.2 ---
- Free Text/Narrative Note: called for IV start. aseptic technique 20 ga placed in Left hand x 1 attempt dressing and secured with tape
[2020-11-06] MEDS: Lactated Ringers 1,000 ML IV SCH (02:37)
[2020-11-06 05:51] LABS: BLOOD UREA NITROGEN,BUN 6 mg/dL (7.0-18.0); CARBON DIOXIDE,CO2 22.9 mmol/L (21.0-32.0); CHLORIDE,CL 107 mmol/L (98-107); GLUCOSE RANDOM 82 mg/dL (74-106); SODIUM,NA 140 mmol/L (136-145)
--- NOTE | 2020-11-06 07:46 | PCM48HPAN ---
Post Anesthesia Note - EVALUATION WITHIN 48HRS OF ANESTHETIC Vital Signs in Normal Range: Yes Patient Participated in Evaluation: Yes Respiratory Function Stable: Yes Airway Patent: Yes Cardiovascular Function Stable: Yes Hydration Status Stable: Yes Pain Control Satisfactory: Yes Nausea and Vomiting Control Satisfactory: Yes Mental Status Recovered: Yes Vital Signs: Last Vital Signs Temp 36.2 C 11/05/20 11:43 Pulse 98 11/05/20 11:43 Resp 18 11/05/20 11:43 BP 96/57 L 11/05/20 11:43 Pulse Ox 99 11/05/20 11:43 - COMMENTS/OBSERVATIONS Free Text/Narrative:: Doing well. No problems noted post.
--- NOTE | 2020-11-06 07:55 | PCM.PN ---
- General Info Date of Service: 11/06/20 Admission Dx/Problem (Free Text): Syncopal episode during second trimester Subjective Update: Resting comfortable in bed, was able to sleep overnight. Received one dose of Vistaril last evening and has not required additional pain medication. Ambulating and voiding without difficulty. Tolerating regular diet. Reports good movement. Denies fever/chills, lightheadedness/dizziness, nausea/vomiting or vaginal bleeding. - Patient Data Vitals - Most Recent: Last Vital Signs Temp 97.1 F 11/05/20 11:43 Pulse 98 11/05/20 11:43 Resp 18 11/05/20 11:43 BP 96/57 L 11/05/20 11:43 Pulse Ox 99 11/05/20 11:43 Weight - Most Recent: 138 lb Lab Results Last 24 Hours: Laboratory Results - last 24 hr 11/05/20 11/05/20 11/05/20 Range/Units 12:22 12:22 12:47 WBC 11.25 H (4.0-11.0) K/uL RBC 3.58 L (4.30-5.90) M/uL Hgb 11.1 L (12.0-16.0) g/dL Hct 33.8 L (36.0-46.0) % MCV 94.4 (80.0-98.0) fL MCH 31.0 (27.0-32.0) pg MCHC 32.8 (31.0-37.0) g/dL RDW Std Deviation 44.9 (28.0-62.0) fl RDW Coeff of Zaira 13 (11.0-15.0) % Plt Count 269 (150-400) K/uL MPV 9.60 (7.40-12.00) fL Neut % (Auto) 71.6 (48.0-80.0) % Lymph % (Auto) 16.4 (16.0-40.0) % [place] % (Auto) 7.1 (0.0-15.0) % Eos % (Auto) 4.7 (0.0-7.0) % Baso % (Auto) 0.2 (0.0-1.5) % Neut # (Auto) 8.1 H (1.4-5.7) K/uL Lymph # (Auto) 1.9 (0.6-2.4) K/uL Frederick # (Auto) 0.8 (0.0-0.8) K/uL Eos # (Auto) 0.5 (0.0-0.7) K/uL Baso # (Auto) 0.0 (0.0-0.1) K/uL Nucleated RBC % 0.0 /100WBC Nucleated RBCs # 0 K/uL Sodium (136-145) mmol/L Potassium (3.5-5.1) mmol/L Chloride (98-107) mmol/L Carbon Dioxide (21.0-32.0) mmol/L BUN (7.0-18.0) mg/dL Creatinine (0.6-1.0) mg/dL Est Cr Clr Drug Dosing mL/min Estimated GFR (MDRD) ml/min Glucose (74-106) mg/dL Calcium (8.5-10.1) mg/dL Total Bilirubin (0.2-1.0) mg/dL AST (15-37) IU/L ALT (14-63) IU/L Alkaline Phosphatase (46-116) U/L Troponin I (0.000-0.056) ng/mL Total Protein (6.4-8.2) g/dL Albumin (3.4-5.0) g/dL Globulin (2.6-4.0) g/dL Albumin/Globulin Ratio (0.9-1.6) Lipase (73-393) U/L Urine Color Urine Appearance Urine pH (5.0-8.0) Ur Specific [place] (1.001-1.035) Urine Protein (NEGATIVE) mg/dL Urine Glucose (UA) (NEGATIVE) mg/dL Urine Ketones (NEGATIVE) mg/dL Urine Occult Blood (NEGATIVE) Urine Nitrite (NEGATIVE) Urine Bilirubin (NEGATIVE) Urine Urobilinogen (<2.0) EU/dL Ur Leukocyte Esterase (NEGATIVE) Membrane Rupture NEGATIVE Urine Opiates Screen (NEGATIVE) Ur Oxycodone Screen (NEGATIVE) Urine Methadone Screen (NEGATIVE) Acetaminophen ug/mL Ur Barbiturates Screen (NEGATIVE) Ur Phencyclidine Scrn (NEGATIVE) Ur Amphetamine Screen (NEGATIVE) U Methamphetamines Scrn (NEGATIVE) U Benzodiazepines Scrn (NEGATIVE) U Cocaine Metab Screen (NEGATIVE) U Marijuana (THC) Screen (NEGATIVE) Monique species DNA POSITIVE H (NEGATIVE) Gardnerella DNA Probe NEGATIVE (NEGATIVE) SARS-CoV-2 RNA (RISHI) (NEGATIVE) Trichomonas DNA Probe NEGATIVE (NEGATIVE) 11/05/20 11/05/20 11/05/20 Range/Units 12:47 14:05 15:07 WBC (4.0-11.0) K/uL RBC (4.30-5.90) M/uL Hgb (12.0-16.0) g/dL Hct (36.0-46.0) % MCV (80.0-98.0) fL MCH (27.0-32.0) pg MCHC (31.0-37.0) g/dL RDW Std Deviation (28.0-62.0) fl RDW Coeff of Zaira (11.0-15.0) % Plt Count (150-400) K/uL MPV (7.40-12.00) fL Neut % (Auto) (48.0-80.0) % Lymph % (Auto) (16.0-40.0) % Frederick % (Auto) (0.0-15.0) % Eos % (Auto) (0.0-7.0) % Baso % (Auto) (0.0-1.5) % Neut # (Auto) (1.4-5.7) K/uL Lymph # (Auto) (0.6-2.4) K/uL [place] # (Auto) (0.0-0.8) K/uL Eos # (Auto) (0.0-0.7) K/uL Baso # (Auto) (0.0-0.1) K/uL Nucleated RBC % /100WBC Nucleated RBCs # K/uL Sodium 138 (136-145) mmol/L Potassium 4.1 (3.5-5.1) mmol/L Chloride 104 (98-107) mmol/L Carbon Dioxide 23.9 (21.0-32.0) mmol/L BUN 6 L (7.0-18.0) mg/dL Creatinine 0.5 L (0.6-1.0) mg/dL Est Cr Clr Drug Dosing 119.25 mL/min Estimated GFR (MDRD) > 60.0 ml/min Glucose 94 (74-106) mg/dL Calcium 8.8 (8.5-10.1) mg/dL Total Bilirubin 0.3 (0.2-1.0) mg/dL AST 42 H (15-37) IU/L ALT 66 H (14-63) IU/L Alkaline Phosphatase 88 (46-116) U/L Troponin I < 0.050 (0.000-0.056) ng/mL Total Protein 6.2 L (6.4-8.2) g/dL Albumin 2.5 L (3.4-5.0) g/dL Globulin 3.7 (2.6-4.0) g/dL Albumin/Globulin Ratio 0.7 L (0.9-1.6) Lipase 94 (73-393) U/L Urine Color YELLOW Urine Appearance CLEAR Urine pH 7.0 (5.0-8.0) Ur Specific [place] 1.015 (1.001-1.035) Urine Protein NEGATIVE (NEGATIVE) mg/dL Urine Glucose (UA) NEGATIVE (NEGATIVE) mg/dL Urine Ketones 40 H (NEGATIVE) mg/dL Urine Occult Blood NEGATIVE (NEGATIVE) Urine Nitrite NEGATIVE (NEGATIVE) Urine Bilirubin NEGATIVE (NEGATIVE) Urine Urobilinogen 0.2 (<2.0) EU/dL Ur Leukocyte Esterase NEGATIVE (NEGATIVE) Membrane Rupture Urine Opiates Screen (NEGATIVE) Ur Oxycodone Screen (NEGATIVE) Urine Methadone Screen (NEGATIVE) Acetaminophen <2.0 ug/mL Ur Barbiturates Screen (NEGATIVE) Ur Phencyclidine Scrn (NEGATIVE) Ur Amphetamine Screen (NEGATIVE) U Methamphetamines Scrn (NEGATIVE) U Benzodiazepines Scrn (NEGATIVE) U Cocaine Metab Screen (NEGATIVE) U Marijuana (THC) Screen (NEGATIVE) Monique species DNA (NEGATIVE) Gardnerella DNA Probe (NEGATIVE) SARS-CoV-2 RNA (RISHI) (NEGATIVE) Trichomonas DNA Probe (NEGATIVE) 11/05/20 11/05/20 11/06/20 Range/Units 15:07 18:30 05:03 WBC 8.83 (4.0-11.0) K/uL RBC 3.17 L (4.30-5.90) M/uL Hgb 10.0 L (12.0-16.0) g/dL Hct 30.2 L (36.0-46.0) % MCV 95.3 (80.0-98.0) fL MCH 31.5 (27.0-32.0) pg MCHC 33.1 (31.0-37.0) g/dL RDW Std Deviation 45.0 (28.0-62.0) fl RDW Coeff of Zaira 13 (11.0-15.0) % Plt Count 249 (150-400) K/uL MPV 9.60 (7.40-12.00) fL Neut % (Auto) (48.0-80.0) % Lymph % (Auto) (16.0-40.0) % Frederick % (Auto) (0.0-15.0) % Eos % (Auto) (0.0-7.0) % Baso % (Auto) (0.0-1.5) % Neut # (Auto) (1.4-5.7) K/uL Lymph # (Auto) (0.6-2.4) K/uL [place] # (Auto) (0.0-0.8) K/uL Eos # (Auto) (0.0-0.7) K/uL Baso # (Auto) (0.0-0.1) K/uL Nucleated RBC % 0.0 /100WBC Nucleated RBCs # 0 K/uL Sodium (136-145) mmol/L Potassium (3.5-5.1) mmol/L Chloride (98-107) mmol/L Carbon Dioxide (21.0-32.0) mmol/L BUN (7.0-18.0) mg/dL Creatinine (0.6-1.0) mg/dL Est Cr Clr Drug Dosing mL/min Estimated GFR (MDRD) ml/min Glucose (74-106) mg/dL Calcium (8.5-10.1) mg/dL Total Bilirubin (0.2-1.0) mg/dL AST (15-37) IU/L ALT (14-63) IU/L Alkaline Phosphatase (46-116) U/L Troponin I (0.000-0.056) ng/mL Total Protein (6.4-8.2) g/dL Albumin (3.4-5.0) g/dL Globulin (2.6-4.0) g/dL Albumin/Globulin Ratio (0.9-1.6) Lipase (73-393) U/L Urine Color Urine Appearance Urine pH (5.0-8.0) Ur Specific [place] (1.001-1.035) Urine Protein (NEGATIVE) mg/dL Urine Glucose (UA) (NEGATIVE) mg/dL Urine Ketones (NEGATIVE) mg/dL Urine Occult Blood (NEGATIVE) Urine Nitrite (NEGATIVE) Urine Bilirubin (NEGATIVE) Urine Urobilinogen (<2.0) EU/dL Ur Leukocyte Esterase (NEGATIVE) Membrane Rupture Urine Opiates Screen NEGATIVE (NEGATIVE) Ur Oxycodone Screen NEGATIVE (NEGATIVE) Urine Methadone Screen NEGATIVE (NEGATIVE) Acetaminophen ug/mL Ur Barbiturates Screen NEGATIVE (NEGATIVE) Ur Phencyclidine Scrn NEGATIVE (NEGATIVE) Ur Amphetamine Screen NEGATIVE (NEGATIVE) U Methamphetamines Scrn NEGATIVE (NEGATIVE) U Benzodiazepines Scrn NEGATIVE (NEGATIVE) U Cocaine Metab Screen NEGATIVE (NEGATIVE) U Marijuana (THC) Screen NEGATIVE (NEGATIVE) Monique species DNA (NEGATIVE) Gardnerella DNA Probe (NEGATIVE) SARS-CoV-2 RNA (RISHI) NEGATIVE (NEGATIVE) Trichomonas DNA Probe (NEGATIVE) 11/06/20 Range/Units 05:03 WBC (4.0-11.0) K/uL RBC (4.30-5.90) M/uL Hgb (12.0-16.0) g/dL Hct (36.0-46.0) % MCV (80.0-98.0) fL MCH (27.0-32.0) pg MCHC (31.0-37.0) g/dL RDW Std Deviation (28.0-62.0) fl RDW Coeff of Zaira (11.0-15.0) % Plt Count (150-400) K/uL MPV (7.40-12.00) fL Neut % (Auto) (48.0-80.0) % Lymph % (Auto) (16.0-40.0) % [place] % (Auto) (0.0-15.0) % Eos % (Auto) (0.0-7.0) % Baso % (Auto) (0.0-1.5) % Neut # (Auto) (1.4-5.7) K/uL Lymph # (Auto) (0.6-2.4) K/uL [place] # (Auto) (0.0-0.8) K/uL Eos # (Auto) (0.0-0.7) K/uL Baso # (Auto) (0.0-0.1) K/uL Nucleated RBC % /100WBC Nucleated RBCs # K/uL Sodium 140 (136-145) mmol/L Potassium 4.0 (3.5-5.1) mmol/L Chloride 107 (98-107) mmol/L Carbon Dioxide 22.9 (21.0-32.0) mmol/L BUN 6 L (7.0-18.0) mg/dL Creatinine 0.5 L (0.6-1.0) mg/dL Est Cr Clr Drug Dosing 119.25 mL/min Estimated GFR (MDRD) > 60.0 ml/min Glucose 82 (74-106) mg/dL Calcium 8.0 L (8.5-10.1) mg/dL Total Bilirubin 0.3 (0.2-1.0) mg/dL AST 34 (15-37) IU/L ALT 52 (14-63) IU/L Alkaline Phosphatase 75 (46-116) U/L Troponin I (0.000-0.056) ng/mL Total Protein 5.3 L (6.4-8.2) g/dL Albumin 2.0 L (3.4-5.0) g/dL Globulin 3.3 (2.6-4.0) g/dL Albumin/Globulin Ratio 0.6 L (0.9-1.6) Lipase (73-393) U/L Urine Color Urine Appearance Urine pH (5.0-8.0) Ur Specific [place] (1.001-1.035) Urine Protein (NEGATIVE) mg/dL Urine Glucose (UA) (NEGATIVE) mg/dL Urine Ketones (NEGATIVE) mg/dL Urine Occult Blood (NEGATIVE) Urine Nitrite (NEGATIVE) Urine Bilirubin (NEGATIVE) Urine Urobilinogen (<2.0) EU/dL Ur Leukocyte Esterase (NEGATIVE) Membrane Rupture Urine Opiates Screen (NEGATIVE) Ur Oxycodone Screen (NEGATIVE) Urine Methadone Screen (NEGATIVE) Acetaminophen ug/mL Ur Barbiturates Screen (NEGATIVE) Ur Phencyclidine Scrn (NEGATIVE) Ur Amphetamine Screen (NEGATIVE) U Methamphetamines Scrn (NEGATIVE) U Benzodiazepines Scrn (NEGATIVE) U Cocaine Metab Screen (NEGATIVE) U Marijuana (THC) Screen (NEGATIVE) Monique species DNA (NEGATIVE) Gardnerella DNA Probe (NEGATIVE) SARS-CoV-2 RNA (RISHI) (NEGATIVE) Trichomonas DNA Probe (NEGATIVE) Med Orders - Current: Current Medications Hydroxyzine Pamoate (Vistaril) 25 mg PO Q6H PRN PRN Reason: Pain Last Admin: 11/05/20 17:55 Dose: 25 mg Documented by: Lactated Ringer's (Ringers, Lactated) 1,000 mls @ 125 mls/hr IV ASDIRECTED KJ Last Admin: 11/06/20 02:37 Dose: 125 mls/hr Documented by: Sodium Chloride (Saline Flush) 10 ml FLUSH ASDIRECTED PRN PRN Reason: Keep Vein Open Sodium Chloride (Saline Flush) 2.5 ml FLUSH ASDIRECTED PRN PRN Reason: Keep Vein Open Discontinued Medications Fluconazole (Diflucan) 100 mg PO ONETIME ONE Stop: 11/05/20 15:01 Last Admin: 11/05/20 15:48 Dose: 100 mg Documented by: Sodium Chloride (Normal Saline) 1,000 mls @ 999 mls/hr IV BOLUS ONE Stop: 11/05/20 12:58 - Exam General: Alert Lungs: Normal Respiratory Effort Cardiovascular: Regular Rate GI/Abdominal Exam: Soft, No Distention, Tender (mild, left lower quadrant) Extremities: Normal Inspection, Non-Tender, No Pedal Edema Skin: Warm, Dry, Intact Neurological: No New Focal Deficit Psy/Mental Status: Normal Mood Sepsis Event Note - Evaluation Sepsis Screening Result: No Definite Risk - Problem List Review Problem List Initiated/Reviewed/Updated: Yes - My Orders Last 24 Hours: My Active Orders 11/05/20 Lunch Regular Diet [DIET] 11/05/20 13:00 Patient Status [ADT] Routine 11/05/20 14:32 hydrOXYzine pamoate [Vistaril] 25 mg PO Q6H PRN 11/05/20 14:45 Lactated Ringers [Ringers, Lactated] 1,000 ml IV ASDIRECTED 11/05/20 18:30 HEPATITIS PANEL (4) [REF] Routine 11/05/20 20:00 Blood Glucose Check, Bedside [RC] ONETIME - Assessment Assessment:: 30 year old G1 at 27w6d (ALTHEA 01/30/2021 by LMP c/w 1st trimester US) with syncopal episode - Plan Plan:: * VSS, afebrile * FHR category 1 * [place] quiet overnight * Labs - Hgb WNL, LFTs within normal limits on repeat blood work this AM. Hepatitis panel pending. * OB/retroperitoneal US negative for renal pathology, TAINA WNL, ovaries not visualized. * s/p 1 dose Diflucan for yeast infection * Tolerating regular diet Dispo: stable. Anticipate discharge today pending patient status. Patient to follow up at [facility] next week for regularly scheduled appointment and labs. Precautions reviewed for when patient to notify clinic or present to ED. May use Tylenol, Benadryl and heat for pelvic pain. Rx for Diflucan x1 sent to patient's pharmacy, instructed to take on Monday.
[2020-11-06 16:06] LABS: C.TRACHOMATIS BY TMA Negative (Negative); N.GONORRHOEAE BY TMA Negative (Negative)
== END 2020-11-06 09:59 | disposition home or self-care (01) ==
LOC: MW.ED 11:40 → MW.OB 13:47
PROVIDERS: ADMIT Obstetrics & Gynecology; ATTEND Obstetrics & Gynecology
DX: O26.892 Other specified pregnancy related conditions, second trimester (principal); R55 Syncope and collapse; R10.32 Left lower quadrant pain; Z3A.27 27 weeks gestation of pregnancy; Z20.822 Contact with and (suspected) exposure to COVID-19
CPT/HCPCS: 36415; 76770; 76805; 80053; 80074; 80143; 80305; 81003; 83690; 84112; 84484; 85025; 85027; 87480; 87491; 87510; 87591; 87635; 87660; 93005; 99285; A9270; G0378; J7120; 36410; 93010; 99284; U0002

== ENCOUNTER 2021-02-03 22:35 | Inpatient (IN) | payer BC ==
[2021-02-03] MEDS ORDERED: Water For Irrigation,Sterile 1,000 ML Container IRR PRN (23:01)
[2021-02-03] MEDS ORDERED: Sodium Chloride 0.9% 2.5 ML Syringe FLUSH PRN (23:01)
[2021-02-03] MEDS ORDERED: Lidocaine 1% 50 ML MDV INJECT PRN (23:01)
[2021-02-03] MEDS ORDERED: Butorphanol 1 MG/ML SDV IVPUSH PRN (23:01)
[2021-02-03] MEDS ORDERED: Sodium Chloride 0.9% 10 ML SDV IV PRN (23:01)
[2021-02-03] MEDS ORDERED: Misoprostol 200 MCG Tab PO PRN (23:01)
[2021-02-03] MEDS ORDERED: Carboprost Tromethamine 250 MCG/1 ML Amp IM PRN (23:01)
[2021-02-03] MEDS ORDERED: Sodium Chloride 0.9% 10 ML Syringe FLUSH PRN (23:01)
[2021-02-03] MEDS ORDERED: Methylergonovine 0.2 MG/1 ML Amp IM PRN (23:01)
[2021-02-03] MEDS ORDERED: Nalbuphine 10 MG/1 ML Vial IVPUSH PRN (23:01)
[2021-02-03] MEDS ORDERED: Tranexamic Acid 1,000 MG in Sodium Chloride 0.9% 100 ML IV PRN (23:01)
[2021-02-03] MEDS ORDERED: Terbutaline 1 MG/ML SDV SUBCUT PRN (23:03)
[2021-02-03] MEDS ORDERED: Oxytocin/0.9 % Sodium Chloride 30 UNIT/500 ML BAG IV SCH ×2 (23:15)
[2021-02-04] MEDS: Lactated Ringers 1,000 ML IV SCH ×4 (01:15→13:53)
[2021-02-04] MEDS ORDERED: Ampicillin 2 GM in Sodium Chloride 0.9% 100 ML IV ONE (01:15)
[2021-02-04] MEDS ORDERED: Misoprostol 25 MCG (1/4 of 100 MCG) Tab PO PRN ×2 (04:00)
[2021-02-04] MEDS ORDERED: Oxytocin/0.9 % Sodium Chloride 30 UNIT/500 ML BAG ONE ×2 (04:37→19:24)
[2021-02-04] MEDS: Ampicillin 1 GM in Sodium Chloride 0.9% 50 ML IV SCH ×5 (04:55→22:14)
[2021-02-04] MEDS ORDERED: Ropivacaine HCl/PF 100 ML ONE (07:43)
[2021-02-04] MEDS ORDERED: Ropivacaine 0.2% PF 2 MG/ML 20 ML SDV ONE (07:44)
[2021-02-04] MEDS ORDERED: fentaNYL 100 MCG/2 ML SDV ONE (07:48)
[2021-02-04] MEDS ORDERED: ePHEDrine 50 MG/ML SDV ONE (08:21)
--- NOTE | 2021-02-04 08:40 | PCM.PREANE ---
Preanesthetic Assessment - Anesthesia/Transfusion/Family Hx Family History of Anesthesia Reaction: No - Review of Systems General: No Symptoms Pulmonary: No Symptoms Cardiovascular: No Symptoms Gastrointestinal: No Symptoms Neurological: No Symptoms Other: Reports: None - Physical Assessment Height: 1.52 m Weight: 67.585 kg ASA Class: 2 Mental Status: Alert & Oriented x3 Airway Class: Mallampati = 2 Dentition: Reports: Normal Dentition ROM/Head Extension: Full - Lab Values: Laboratory Last Values WBC 7.57 K/uL (4.0-11.0) 02/03/21 23:15 RBC 3.86 M/uL (4.30-5.90) L 02/03/21 23:15 Hgb 11.0 g/dL (12.0-16.0) L 02/03/21 23:15 Hct 34.3 % (36.0-46.0) L 02/03/21 23:15 MCV 88.9 fL (80.0-98.0) 02/03/21 23:15 MCH 28.5 pg (27.0-32.0) 02/03/21 23:15 MCHC 32.1 g/dL (31.0-37.0) 02/03/21 23:15 RDW Std Deviation 47.5 fl (28.0-62.0) 02/03/21 23:15 RDW Coeff of Zaira 15 % (11.0-15.0) 02/03/21 23:15 Plt Count 275 K/uL (150-400) 02/03/21 23:15 MPV 10.40 fL (7.40-12.00) 02/03/21 23:15 Nucleated RBC % 0.0 /100WBC 02/03/21 23:15 Nucleated RBCs # 0 K/uL 02/03/21 23:15 Membrane Rupture POSITIVE 02/03/21 22:40 Blood Type A POSITIVE 02/03/21 23:58 Antibody Screen NEGATIVE 02/03/21 23:58 Cold Antibody Screen POSITIVE 02/03/21 23:58 - Allergies Allergies/Adverse Reactions: Allergies Allergy/AdvReac Type Severity Reaction Status Date / Time No Known Allergies Allergy Verified 02/03/21 23:01 - Acknowledgements Anesthesia Type Planned: Epidural Pt an Appropriate Candidate for the Planned Anesthesia: Yes Alternatives and Risks of Anesthesia Discussed w Pt/Guardian: Yes Pt/Guardian Understands and Agrees with Anesthesia Plan: Yes PreAnesthesia Questionnaire - Past Health History Medical/Surgical History: Denies Medical/Surgical History HEENT History: Reports: None Cardiovascular History: Reports: None Respiratory History: Reports: None Gastrointestinal History: Reports: None Genitourinary History: Reports: None [employer] History: Reports: Musculoskeletal History: Reports: None Neurological History: Reports: None Psychiatric History: Reports: None Endocrine/Metabolic History: Reports: None Hematologic History: Reports: None Immunologic History: Reports: None Oncologic (Cancer) History: Reports: None Dermatologic History: Reports: None - Infectious Disease History Infectious Disease History: Reports: None - Past Surgical History Head Surgeries/Procedures: Reports: None Cardiovascular Surgical History: Reports: None - SUBSTANCE USE Tobacco Use Status *Q: Never Tobacco User Second Hand Smoke Exposure: No Recreational Drug Use History: No - HOME MEDS Home Medications: Home Meds Acetaminophen [Tylenol] mg PO ASDIRECTED PRN 11/05/20 [History] Vits #93/Iron Fum/FA [ Formula Tablet] 1 each PO DAILY 11/05/20 [History] Fluconazole [Diflucan] 150 mg PO ONETIME 1 Days #1 tab 11/06/20 [Rx] - CURRENT (IN HOUSE) MEDS Current Meds: Current Medications Butorphanol Tartrate (Butorphanol 1 Mg/Ml Sdv) 1 mg IVPUSH Q1H PRN PRN Reason: Pain Carboprost Tromethamine (Carboprost Tromethamine 250 Mcg/1 Ml Amp) 250 mcg IM ASDIRECTED PRN PRN Reason: Post Hemorrhage Lactated Ringer's (Ringers, Lactated) 1,000 mls @ 150 mls/hr IV ASDIRECTED KJ Last Admin: 02/04/21 08:11 Dose: 999 mls/hr Documented by: Oxytocin/Sodium Chloride (Oxytocin 30 Unit/500 Ml-Ns) 30 unit in 500 mls @ 500 mls/hr IV TITRATE KJ Tranexamic Acid 1,000 mg/ (Sodium Chloride) 110 mls @ 660 mls/hr IV ONETIME PRN PRN Reason: Bleeding Oxytocin/Sodium Chloride (Oxytocin 30 Unit/500 Ml-Ns) 30 unit in 500 mls @ 2 mls/hr IV TITRATE KJ; Protocol Last Titration: 02/04/21 07:00 Dose: 4 munits/min, 4 mls/hr Documented by: Ampicillin Sodium 1 gm/ Sodium (Chloride) 50 mls @ 100 mls/hr IV Q4H KJ Last Admin: 02/04/21 04:55 Dose: 100 mls/hr Documented by: Lidocaine HCl (Lidocaine 1% 50 Ml Mdv) 50 ml INJECT ONETIME PRN PRN Reason: Laceration repair Methylergonovine Maleate (Methylergonovine 0.2 Mg/1 Ml Amp) 0.2 mg IM ASDIRECTED PRN PRN Reason: Post Hemorrhage Misoprostol (Misoprostol 200 Mcg Tab) 200 mcg PO ONETIME PRN PRN Reason: Post Hemorrhage Misoprostol (Misoprostol 25 Mcg (1/4 Of 100 Mcg) Tab) 25 mcg PO ONETIME PRN PRN Reason: Cervical Ripening Last Admin: 02/04/21 00:50 Dose: 25 mcg Documented by: Misoprostol (Misoprostol 25 Mcg (1/4 Of 100 Mcg) Tab) 25 mcg PO Q4H PRN PRN Reason: Cervical Ripening Nalbuphine HCl (Nalbuphine 10 Mg/1 Ml Vial) 10 mg IVPUSH Q1H PRN PRN Reason: Pain (severe 7-10) Sodium Chloride (Sodium Chloride 0.9% 10 Ml Syringe) 10 ml FLUSH ASDIRECTED PRN PRN Reason: Keep Vein Open Sodium Chloride (Sodium Chloride 0.9% 2.5 Ml Syringe) 2.5 ml FLUSH ASDIRECTED PRN PRN Reason: Keep Vein Open Sodium Chloride (Sodium Chloride 0.9% 10 Ml Sdv) 10 ml IV ASDIRECTED PRN PRN Reason: IV Use Sterile Water (Water For Irrigation,Sterile 1,000 Ml Container) 1,000 ml IRR ASDIRECTED PRN PRN Reason: delivery Terbutaline Sulfate (Terbutaline 1 Mg/Ml Sdv) 0.25 mg SUBCUT ASDIRECTED PRN PRN Reason: Tacysystole Discontinued Medications Ephedrine Sulfate (Ephedrine 50 Mg/Ml Sdv) Confirm Administered Dose 50 mg .ROUTE .STK-MED ONE Stop: 02/04/21 08:22 Fentanyl (Fentanyl 100 Mcg/2 Ml Sdv) Confirm Administered Dose 200 mcg .ROUTE .STK-MED ONE Stop: 02/04/21 07:49 Ampicillin Sodium 2 gm/ Sodium (Chloride) 100 mls @ 200 mls/hr IV ONETIME ONE Stop: 02/04/21 01:44 Last Admin: 02/04/21 01:20 Dose: 200 mls/hr Documented by: Oxytocin/Sodium Chloride (Oxytocin 30 Unit/500 Ml-Ns) Confirm Administered Dose 30 unit in 500 mls @ as directed [facility] Stop: 02/04/21 04:38 Ropivacaine (Naropin 0.2%) Confirm Administered Dose 100 mls @ as directed .[facility] Stop: 02/04/21 07:44 Ropivacaine (Ropivacaine 0.2% Pf 2 Mg/Ml 20 Ml Sdv) Confirm Administered Dose 20 ml [facility] Stop: 02/04/21 07:45
--- NOTE | 2021-02-04 09:05 | PCM.PRNOTE ---
- Free Text/Narrative Note: Anes Note Patient reports excellent analgesia, and vs are stable. However, patient demostrates slightly weakened hand grasps. Resp are easy and unlabored. Epidural pumps turned off for 30 minutes. No distress. Time with patient [id number] Jaxon Lowery CRNA
[2021-02-04] MEDS ORDERED: Bupivacaine 0.25% 10 ML SDV ONE (11:19)
[2021-02-04] MEDS ORDERED: Lidocaine 1% 50 ML MDV ONE (23:43)
[2021-02-05] MEDS ORDERED: Methylergonovine 0.2 MG/1 ML Amp ONE (00:07)
[2021-02-05] MEDS ORDERED: Acetaminophen 500 MG Tab PO PRN (00:10)
[2021-02-05] MEDS ORDERED: Lanolin 100% Cream 7 GM Tube TOP PRN (00:10)
[2021-02-05] MEDS ORDERED: Methylergonovine 0.2 MG/1 ML Amp IM PRN (00:10)
[2021-02-05] MEDS ORDERED: Ibuprofen 400 MG Tab PO PRN (00:10)
[2021-02-05] MEDS ORDERED: Bisacodyl 10 MG Supp RECTAL PRN (00:10)
[2021-02-05] MEDS ORDERED: Docusate Sodium 100 MG Cap PO PRN (00:10)
[2021-02-05] MEDS ORDERED: Witch Hazel Medicated Pads 40/Jar TOP PRN (00:10)
[2021-02-05] MEDS ORDERED: oxyCODONE 5 MG Tab PO PRN (00:10)
[2021-02-05] MEDS ORDERED: Benzocaine/Menthol 20%-0.5% Spray 78 GM Cannister TOP PRN (00:10)
--- NOTE | 2021-02-05 00:23 | PCM.OPNOTE ---
- General Post-Op/Procedure Note Date of Surgery/Procedure: 02/04/21 Operative Procedure(s): Spontaneous vaginal delivery Findings: Normal appearing female infant in cephalic presentation. Clear amniotic fluid. APGARs 9/9. Weight not yet available at this time. Second degree perineal laceration. EBL 400cc. Pre Op Diagnosis: 1. Jackson gestation at 40w5d. 2. Premature rupture of membranes. 3. GBS positive Post-Op Diagnosis: 1. Jackson gestation 40w5d. 2. Premature rupture of membranes. 3. GBS positive Anesthesia Technique: Epidural, Local (5cc) Primary Surgeon: Rere Mota Anesthesia Provider: Royce Perez EBL in mLs: 400 Complications: None known Condition: Good Free Text/Narrative:: Intake & Output 02/04/21 02/04/21 02/05/21 14:59 22:59 06:59 Output Total 600 Balance -600 Dictation #[id number]
[2021-02-05] MEDS: Ibuprofen 800 MG Tab PO PRN ×2 (02:18→13:15)
[2021-02-05] MEDS: Acetaminophen 500 MG Tab PO PRN ×3 (02:18→16:18)
--- NOTE | 2021-02-05 02:33 | OR ---
SURGEON: KEYUR WADSWORTH MD DATE OF PROCEDURE: 02/04/2021 PREOPERATIVE DIAGNOSES: 1. Jackson gestation at 40 weeks 5 days. 2. Premature rupture of membranes. 3. Group B Streptococcus positive. POSTOPERATIVE DIAGNOSES: 1. Jackson gestation at 40 weeks 5 days. 2. Premature rupture of membranes. 3. Group B Streptococcus positive. PROCEDURE PERFORMED: Normal spontaneous vaginal delivery with repair of second-degree perineal laceration. PRIMARY SURGEON: Keyur Wadsworth MD. ANESTHESIA PROVIDER: Rudolph Perez MD. FINDINGS: Normal-appearing female infant, cephalic presentation, clear amniotic fluid. scores 9 and 9. Weight is not yet available at this time. Secondary perineal laceration. ESTIMATED BLOOD LOSS: 400 mL. INDICATION FOR PROCEDURE: The patient is a 30-year-old, one, para zero female at 40 weeks and 5 days with EDC of 01/30/2021, by last menstrual period confirmed with first trimester ultrasound, presented to Labor and Delivery on the evening of 02/03/2021 with premature rupture of membranes at 2200. The patient was noted to be 1 cm dilated and received oral Cytotec overnight. In the morning, IV Pitocin was initiated. Shortly thereafter, the patient received an epidural for pain management. During the day, IUPC was placed to evaluate contractility. At approximately 2300, I was notified that the patient had been pushing for approximately 45 minutes with good efforts and delivery was imminent. I presented to the patient's room shortly thereafter. The patient continued to push with contractions for approximately 30 minutes with good descent. head delivered in the occiput anterior position, restituted ROT. Anterior shoulder was delivered easily. No nuchal cord was noted. Posterior shoulder and remaining body were then delivered. The baby was placed then on the maternal abdomen and evaluated by awaiting nursing staff. The baby with pink, crying vigorously, and moving all extremities immediately after delivery. The umbilical cord was clamped and cut after 60 seconds. Arterial, venous, and cord blood gases were then obtained. Three-vessel cord was noted. The placenta was then expressed intact. Due to gush of blood following fundal massage, was performed and no contents were contained in the uterus. The uterine tone improved after manual massage. Inspection of the cervix, vaginal wall, and perineum was then performed. A second-degree perineal laceration was noted and repaired in the normal fashion with 2-0 Vicryl. The patient then had an additional 100 mL gush of blood following fundal massage. However, the fundus remained firm. A second IV bag of Pitocin was ordered along with one dose of IM Methergine to insure hemostasis. Vital signs remained stable throughout. The patient tolerated the procedure well. Sponge, lap, and needle count were correct x2. The patient and recovering in Labor and Delivery room. GEREMIAS DEWITT /[id number]
--- NOTE | 2021-02-05 07:56 | PCM48HPAN ---
Post Anesthesia Note - EVALUATION WITHIN 48HRS OF ANESTHETIC Vital Signs in Normal Range: Yes Patient Participated in Evaluation: Yes Respiratory Function Stable: Yes Airway Patent: Yes Cardiovascular Function Stable: Yes Hydration Status Stable: Yes Pain Control Satisfactory: Yes Nausea and Vomiting Control Satisfactory: Yes Mental Status Recovered: Yes Vital Signs: Last Vital Signs Temp 37.2 C 02/05/21 04:30 Pulse 77 02/05/21 04:30 Resp 16 02/05/21 04:30 BP 104/54 L 02/05/21 04:30 Pulse Ox 96 02/05/21 04:30
--- NOTE | 2021-02-05 08:29 | PCM.PNPP ---
- General Info Date of Service: 02/05/21 Admission Dx/Problem (Free Text): Premature rupture of membranes Subjective Update: Resting comfortably in bed during rounds. Pain well controlled. Lochia decreasing. Ambulating and voiding without difficulty. Has attempted to breastfeed overnight. - General Info Date of Service: 02/05/21 - Patient Data Vital Signs - Most Recent: Last Vital Signs Temp 96.5 F L 02/05/21 08:14 Pulse 70 02/05/21 08:14 Resp 18 02/05/21 08:14 BP 115/76 02/05/21 08:14 Pulse Ox 100 02/05/21 08:14 Weight - Most Recent: 149 lb I&O - Last 24 Hours: Intake & Output 02/04/21 02/05/21 02/05/21 22:59 06:59 14:59 Output Total 600 Balance -600 Lab Results - Last 24 Hours: Laboratory Results - last 24 hr 02/04/21 Range/Units 23:32 Cord ABG pH 7.255 (7.18-7.38) Cord ABG Base Excess -11 L (-10--2) Cord VBG pH 7.318 (7.25-7.45) Cord VBG Base Excess -9 (-10--2) Med Orders - Current: Current Medications Acetaminophen (Acetaminophen 500 Mg Tab) 500 mg PO Q4H PRN PRN Reason: Pain Acetaminophen (Acetaminophen 500 Mg Tab) 1,000 mg PO Q4H PRN PRN Reason: Pain Last Admin: 02/05/21 02:18 Dose: 1,000 mg Documented by: Benzocaine/Menthol (Benzocaine/Menthol 20%-0.5% [place] 78 Gm Cannister) 0 gm TOP ASDIRECTED PRN PRN Reason: Perineal Comfort Measure Last Admin: 02/05/21 02:56 Dose: 1 can Documented by: Bisacodyl (Bisacodyl 10 Mg Supp) 10 mg RECTAL ONETIME PRN PRN Reason: Constipation Butorphanol Tartrate (Butorphanol 1 Mg/Ml Sdv) 1 mg IVPUSH Q1H PRN PRN Reason: Pain Carboprost Tromethamine (Carboprost Tromethamine 250 Mcg/1 Ml Amp) 250 mcg IM ASDIRECTED PRN PRN Reason: Post Hemorrhage Docusate Sodium (Docusate Sodium 100 Mg Cap) 100 mg PO BID PRN PRN Reason: Constipation Emollient Ointment (Lanolin 100% Cream 7 Gm Tube) 0 gm TOP ASDIRECTED PRN PRN Reason: Sore Nipples Lactated Ringer's (Ringers, Lactated) 1,000 mls @ 150 mls/hr IV ASDIRECTED KJ Last Admin: 02/04/21 13:53 Dose: 150 mls/hr Documented by: Oxytocin/Sodium Chloride (Oxytocin 30 Unit/500 Ml-Ns) 30 unit in 500 mls @ 500 mls/hr IV TITRATE [facility] Tranexamic Acid 1,000 mg/ (Sodium Chloride) 110 mls @ 660 mls/hr IV ONETIME PRN PRN Reason: Bleeding Oxytocin/Sodium Chloride (Oxytocin 30 Unit/500 Ml-Ns) 30 unit in 500 mls @ 2 mls/hr IV TITRATE [facility]; Protocol Last Titration: 02/04/21 17:20 Dose: 20 munits/min, 20 mls/hr Documented by: Ampicillin Sodium 1 gm/ Sodium (Chloride) 50 mls @ 100 mls/hr IV Q4H [facility] Last Admin: 02/04/21 22:14 Dose: 100 mls/hr Documented by: Ibuprofen (Ibuprofen 400 Mg Tab) 400 mg PO Q4H PRN PRN Reason: Pain Ibuprofen (Ibuprofen 800 Mg Tab) 800 mg PO Q6H PRN PRN Reason: Pain Last Admin: 02/05/21 02:18 Dose: 800 mg Documented by: Lidocaine HCl (Lidocaine 1% 50 Ml Mdv) 50 ml INJECT ONETIME PRN PRN Reason: Laceration repair Methylergonovine Maleate (Methylergonovine 0.2 Mg/1 Ml Amp) 0.2 mg IM ASDIRECTED PRN PRN Reason: Post Hemorrhage Last Admin: 02/05/21 00:09 Dose: 0.2 mg Documented by: Methylergonovine Maleate (Methylergonovine 0.2 Mg/1 Ml Amp) 0.2 mg IM ONETIME PRN PRN Reason: Excessive Vaginal Bleeding Misoprostol (Misoprostol 200 Mcg Tab) 200 mcg PO ONETIME PRN PRN Reason: Post Hemorrhage Misoprostol (Misoprostol 25 Mcg (1/4 Of 100 Mcg) Tab) 25 mcg PO ONETIME PRN PRN Reason: Cervical Ripening Last Admin: 02/04/21 00:50 Dose: 25 mcg Documented by: Misoprostol (Misoprostol 25 Mcg (1/4 Of 100 Mcg) Tab) 25 mcg PO Q4H PRN PRN Reason: Cervical Ripening Nalbuphine HCl (Nalbuphine 10 Mg/1 Ml Vial) 10 mg IVPUSH Q1H PRN PRN Reason: Pain (severe 7-10) Oxycodone HCl (Oxycodone 5 Mg Tab) 5 mg PO Q2H PRN PRN Reason: Pain Sodium Chloride (Sodium Chloride 0.9% 10 Ml Syringe) 10 ml FLUSH ASDIRECTED PRN PRN Reason: Keep Vein Open Sodium Chloride (Sodium Chloride 0.9% 2.5 Ml Syringe) 2.5 ml FLUSH ASDIRECTED PRN PRN Reason: Keep Vein Open Sodium Chloride (Sodium Chloride 0.9% 10 Ml Sdv) 10 ml IV ASDIRECTED PRN PRN Reason: IV Use Sterile Water (Water For Irrigation,Sterile 1,000 Ml Container) 1,000 ml IRR ASDIRECTED PRN PRN Reason: delivery Terbutaline Sulfate (Terbutaline 1 Mg/Ml Sdv) 0.25 mg SUBCUT ASDIRECTED PRN PRN Reason: Tacysystole Witch Jocelyn (Witch Jocelyn Medicated Pads 40/Jar) 1 pad TOP ASDIRECTED PRN PRN Reason: comfort care Last Admin: 02/05/21 02:55 Dose: 1 carton Documented by: Discontinued Medications Bupivacaine HCl (Bupivacaine 0.25% 10 Ml Sdv) Confirm Administered Dose 10 ml .ROUTE .STK-MED ONE Stop: 02/04/21 11:20 Ephedrine Sulfate (Ephedrine 50 Mg/Ml Sdv) Confirm Administered Dose 50 mg .ROUTE .STK-MED ONE Stop: 02/04/21 08:22 Fentanyl (Fentanyl 100 Mcg/2 Ml Sdv) Confirm Administered Dose 200 mcg .ROUTE .STK-MED ONE Stop: 02/04/21 07:49 Ampicillin Sodium 2 gm/ Sodium (Chloride) 100 mls @ 200 mls/hr IV ONETIME ONE Stop: 02/04/21 01:44 Last Admin: 02/04/21 01:20 Dose: 200 mls/hr Documented by: Oxytocin/Sodium Chloride (Oxytocin 30 Unit/500 Ml-Ns) Confirm Administered Dose 30 unit in 500 mls @ as directed .ROUTE .STK-MED ONE Stop: 02/04/21 04:38 Last Admin: 02/04/21 23:48 Dose: 999 mls/hr Documented by: Ropivacaine (Naropin 0.2%) Confirm Administered Dose 100 mls @ as directed .ROUTE .STK-MED ONE Stop: 02/04/21 07:44 Oxytocin/Sodium Chloride (Oxytocin 30 Unit/500 Ml-Ns) Confirm Administered Dose 30 unit in 500 mls @ as directed .ROUTE .STK-MED ONE Stop: 02/04/21 19:25 Lidocaine HCl (Lidocaine 1% 50 Ml Mdv) Confirm Administered Dose 50 ml .ROUTE .[employer]-MED ONE Stop: 02/04/21 23:44 Last Admin: 02/04/21 23:45 Dose: 10 ml Documented by: Methylergonovine Maleate (Methylergonovine 0.2 Mg/1 Ml Amp) Confirm Administered Dose 0.2 mg .ROUTE .[employer]-MED ONE Stop: 02/05/21 00:08 Ropivacaine (Ropivacaine 0.2% Pf 2 Mg/Ml 20 Ml Sdv) Confirm Administered Dose 20 ml .ROUTE .[employer]-MED ONE Stop: 02/04/21 07:45 - Interaction Disposition, : at Bedside Feeding: Attempted ; Nursed Fair/Poor Support Person: Other (see below) ([id number]) - Recovery Exam Fundal Tone: Firm Fundal Level: 2 Fingerbreadths Below Umbilicus Fundal Placement: Midline Lochia Amount: Scant Lochia Color: Rubra/Red Episiotomy/Laceration: Approximated Bladder Status: Nonpalpable, Voiding Urinary Elimination: Voided - Exam General: Alert Lungs: Normal Respiratory Effort Cardiovascular: Regular Rate GI/Abdominal Exam: Soft, Non-Tender Extremities: Normal Range of Motion, Non-Tender, No Pedal Edema Skin: Warm, Dry, Intact Neurological: No New Focal Deficit Psy/Mental Status: Normal Mood - Problem List Review Problem List Initiated/Reviewed/Updated: Yes - My Orders Last 24 Hours: My Active Orders 02/05/21 00:10 Acetaminophen [Tylenol Extra Strength] 1,000 mg PO Q4H PRN Acetaminophen [Tylenol Extra Strength] 500 mg PO Q4H PRN Benzocaine/Menthol [Dermoplast Pain Relief 20%-0.5% [place]] 0 gm TOP ASDIRECTED PRN Docusate Sodium [Colace] 100 mg PO BID PRN Ibuprofen [Motrin] 400 mg PO Q4H PRN Ibuprofen [Motrin] 800 mg PO Q6H PRN Lanolin [Lansinoh HPA] See Dose Instructions TOP ASDIRECTED PRN Methylergonovine [Methergine] 0.2 mg IM ONETIME PRN bisacodyL [Dulcolax] 10 mg RECTAL ONETIME PRN oxyCODONE 5 mg PO Q2H PRN witch Jocelyn [Tucks] 1 pad TOP ASDIRECTED PRN 02/05/21 00:11 Patient Status [ADT] Routine May Shower [RC] ASDIRECTED Up ad Regi [RC] ASDIRECTED Vital Signs [RC] PER UNIT ROUTINE Assess Lochia [WOMSER] Per Unit Routine Assess Uterine Involution [WOMSER] Per Unit Routine Peripheral IV Discontinue [OM.PC] Routine 02/05/21 00:13 Consult to Case Management/Manager Beauty [CONS] Routine 02/06/21 05:11 HEMOGLOBIN/HEMATOCRIT,HH [HEME] Timed - Assessment Assessment:: 30 year old G1 now P1 female PPD1 s/p spontaneous vaginal delivery - Plan Plan:: Routine cares * Rh positive, rubella immune * GBS positive, s/p IV ampicillin during labor * Tylenol and Ibuprofen ordered PRN pain * Regular diet as tolerated * Encourage ambulation and fluid intake today * , desires to trial of breast pump today Complicated social situation * Significant other was taken into custody for resisting arrest on the night of admission (02/03/2021) after he became agitated while on Labor and Delivery. Patient states that he has a history of mood disturbance and had not taken his medication in several days which he normally does well with. Per patient, he has a court hearing today. Patient's [id number] has remained at bedside and has been very supportive. She plans to stay in town and assist the patient with / cares for the next few weeks. Patient reports feeling safe at home and denies history of physical or mental harm from her partner. client services administrator consulted today to assist with discharge planning. Dispo: stable. Anticipate discharge tomorrow due to late delivery. Continue cares today.
[2021-02-05] MEDS: Ampicillin 1 GM in Sodium Chloride 0.9% 50 ML IV SCH ×2 (22:48→22:49)
[2021-02-06] MEDS: Ibuprofen 800 MG Tab PO PRN ×2 (00:21→15:55)
--- NOTE | 2021-02-06 10:20 | PCM.PNPP ---
- General Info Date of Service: 02/06/21 Functional Status: Reports: Pain Controlled, Tolerating Diet, Ambulating, Urinating - Review of Systems General: Reports: Fatigue. Denies: Fever, Weakness Pulmonary: Denies: Shortness of Breath Cardiovascular: Denies: Chest Pain, Palpitations, Lightheadedness Gastrointestinal: Denies: Abdominal Pain, Nausea, Vomiting Genitourinary: Denies: Flank Pain Musculoskeletal: Reports: No Symptoms Skin: Reports: No Symptoms Neurological: Reports: No Symptoms Psychiatric: Reports: No Symptoms - General Info Date of Service: 02/06/21 - Patient Data Vital Signs - Most Recent: Last Vital Signs Temp 36.6 C 02/06/21 08:13 Pulse 95 02/06/21 08:13 Resp 18 02/06/21 08:13 BP 104/62 02/06/21 08:13 Pulse Ox 98 02/06/21 08:13 Weight - Most Recent: 67.585 kg Lab Results - Last 24 Hours: Laboratory Results - last 24 hr 02/03/21 02/03/21 02/06/21 Range/Units 23:15 23:58 05:39 Hgb 9.9 L (12.0-16.0) g/dL Hct 31.2 L (36.0-46.0) % RPR Non-Reac (Non-Reac) Antibody Screen NEGATIVE Med Orders - Current: Current Medications Acetaminophen (Acetaminophen 500 Mg Tab) 500 mg PO Q4H PRN PRN Reason: Pain Acetaminophen (Acetaminophen 500 Mg Tab) 1,000 mg PO Q4H PRN PRN Reason: Pain Last Admin: 02/05/21 16:18 Dose: 1,000 mg Documented by: Benzocaine/Menthol (Benzocaine/Menthol 20%-0.5% [place] 78 Gm Cannister) 0 gm TOP ASDIRECTED PRN PRN Reason: Perineal Comfort Measure Last Admin: 02/05/21 02:56 Dose: 1 can Documented by: Bisacodyl (Bisacodyl 10 Mg Supp) 10 mg RECTAL ONETIME PRN PRN Reason: Constipation Butorphanol Tartrate (Butorphanol 1 Mg/Ml Sdv) 1 mg IVPUSH Q1H PRN PRN Reason: Pain Carboprost Tromethamine (Carboprost Tromethamine 250 Mcg/1 Ml Amp) 250 mcg IM ASDIRECTED PRN PRN Reason: Post Hemorrhage Docusate Sodium (Docusate Sodium 100 Mg Cap) 100 mg PO BID PRN PRN Reason: Constipation Last Admin: 02/05/21 21:03 Dose: 100 mg Documented by: Emollient Ointment (Lanolin 100% Cream 7 Gm Tube) 0 gm TOP ASDIRECTED PRN PRN Reason: Sore Nipples Lactated Ringer's (Ringers, Lactated) 1,000 mls @ 150 mls/hr IV ASDIRECTED KJ Last Admin: 02/04/21 13:53 Dose: 150 mls/hr Documented by: Oxytocin/Sodium Chloride (Oxytocin 30 Unit/500 Ml-Ns) 30 unit in 500 mls @ 500 mls/hr IV TITRATE KJ Tranexamic Acid 1,000 mg/ (Sodium Chloride) 110 mls @ 660 mls/hr IV ONETIME PRN PRN Reason: Bleeding Oxytocin/Sodium Chloride (Oxytocin 30 Unit/500 Ml-Ns) 30 unit in 500 mls @ 2 mls/hr IV TITRATE KJ; Protocol Last Titration: 02/04/21 17:20 Dose: 20 munits/min, 20 mls/hr Documented by: Ampicillin Sodium 1 gm/ Sodium (Chloride) 50 mls @ 100 mls/hr IV Q4H KJ Last Admin: 02/05/21 22:49 Dose: Not Given Documented by: Ibuprofen (Ibuprofen 400 Mg Tab) 400 mg PO Q4H PRN PRN Reason: Pain Ibuprofen (Ibuprofen 800 Mg Tab) 800 mg PO Q6H PRN PRN Reason: Pain Last Admin: 02/06/21 00:21 Dose: 800 mg Documented by: Lidocaine HCl (Lidocaine 1% 50 Ml Mdv) 50 ml INJECT ONETIME PRN PRN Reason: Laceration repair Methylergonovine Maleate (Methylergonovine 0.2 Mg/1 Ml Amp) 0.2 mg IM ASD IRECTED PRN PRN Reason: Post Hemorrhage Last Admin: 02/05/21 00:09 Dose: 0.2 mg Documented by: Methylergonovine Maleate (Methylergonovine 0.2 Mg/1 Ml Amp) 0.2 mg IM ONETIME PRN PRN Reason: Excessive Vaginal Bleeding Misoprostol (Misoprostol 200 Mcg Tab) 200 mcg PO ONETIME PRN PRN Reason: Post Hemorrhage Misoprostol (Misoprostol 25 Mcg (1/4 Of 100 Mcg) Tab) 25 mcg PO ONETIME PRN PRN Reason: Cervical Ripening Last Admin: 02/04/21 00:50 Dose: 25 mcg Documented by: Misoprostol (Misoprostol 25 Mcg (1/4 Of 100 Mcg) Tab) 25 mcg PO Q4H PRN PRN Reason: Cervical Ripening Nalbuphine HCl (Nalbuphine 10 Mg/1 Ml Vial) 10 mg IVPUSH Q1H PRN PRN Reason: Pain (severe 7-10) Oxycodone HCl (Oxycodone 5 Mg Tab) 5 mg PO Q2H PRN PRN Reason: Pain Sodium Chloride (Sodium Chloride 0.9% 10 Ml Syringe) 10 ml FLUSH ASDIRECTED PRN PRN Reason: Keep Vein Open Sodium Chloride (Sodium Chloride 0.9% 2.5 Ml Syringe) 2.5 ml FLUSH ASDIRECTED PRN PRN Reason: Keep Vein Open Sodium Chloride (Sodium Chloride 0.9% 10 Ml Sdv) 10 ml IV ASDIRECTED PRN PRN Reason: IV Use Sterile Water (Water For Irrigation,Sterile 1,000 Ml Container) 1,000 ml IRR ASDIRECTED PRN PRN Reason: delivery Terbutaline Sulfate (Terbutaline 1 Mg/Ml Sdv) 0.25 mg SUBCUT ASDIRECTED PRN PRN Reason: Tacysystole Witch [place] (Witch [place] Medicated Pads 40/Jar) 1 pad TOP ASDIRECTED PRN PRN Reason: comfort care Last Admin: 02/05/21 02:55 Dose: 1 carton Documented by: Discontinued Medications Bupivacaine HCl (Bupivacaine 0.25% 10 Ml Sdv) Confirm Administered Dose 10 ml .ROUTE .STK-MED ONE Stop: 02/04/21 11:20 Last Admin: 02/05/21 22:48 Dose: Not Given Documented by: Ephedrine Sulfate (Ephedrine 50 Mg/Ml Sdv) Confirm Administered Dose 50 mg .ROUTE .STK-MED ONE Stop: 02/04/21 08:22 Fentanyl (Fentanyl 100 Mcg/2 Ml Sdv) Confirm Administered Dose 200 mcg .ROUTE .STK-MED ONE Stop: 02/04/21 07:49 Last Admin: 02/05/21 22:48 Dose: Not Given Documented by: Ampicillin Sodium 2 gm/ Sodium (Chloride) 100 mls @ 200 mls/hr IV ONETIME ONE Stop: 02/04/21 01:44 Last Admin: 02/04/21 01:20 Dose: 200 mls/hr Documented by: Oxytocin/Sodium Chloride (Oxytocin 30 Unit/500 Ml-Ns) Confirm Administered Dose 30 unit in 500 mls @ as directed .ROUTE .STK-MED ONE Stop: 02/04/21 04:38 Last Admin: 02/04/21 23:48 Dose: 999 mls/hr Documented by: Ropivacaine (Naropin 0.2%) Confirm Administered Dose 100 mls @ as directed .ROUTE .STK-MED ONE Stop: 02/04/21 07:44 Last Admin: 02/05/21 22:48 Dose: Not Given Documented by: Oxytocin/Sodium Chloride (Oxytocin 30 Unit/500 Ml-Ns) Confirm Administered Dose 30 unit in 500 mls @ as directed .ROUTE .STK-MED ONE Stop: 02/04/21 19:25 Lidocaine HCl (Lidocaine 1% 50 Ml Mdv) Confirm Administered Dose 50 ml .ROUTE .[employer]-MED ONE Stop: 02/04/21 23:44 Last Admin: 02/04/21 23:45 Dose: 10 ml Documented by: Methylergonovine Maleate (Methylergonovine 0.2 Mg/1 Ml Amp) Confirm Administered Dose 0.2 mg .ROUTE .[employer]-MED ONE Stop: 02/05/21 00:08 Ropivacaine (Ropivacaine 0.2% Pf 2 Mg/Ml 20 Ml Sdv) Confirm Administered Dose 20 ml .ROUTE .[employer]-MED ONE Stop: 02/04/21 07:45 Last Admin: 02/05/21 22:48 Dose: Not Given Documented by: - Infant Interaction Disposition, : [place] at Bedside Feeding: Attempted ; Nursed Fair/Poor Support Person: Other (see below) ([id number]) - Recovery Exam Fundal Tone: Firm Fundal Level: 1 Fingerbreadths Below Umbilicus Fundal Placement: Midline Lochia Amount: Small Lochia Color: Rubra/Red Perineum Description: Intact, Minimal Bruising/Swelling, Other (see below) Other Perinuem Description: 2nd degree laceration Episiotomy/Laceration: Approximated Bladder Status: Voiding Urinary Elimination: Voided - Exam General: Alert, Oriented Lungs: Normal Respiratory Effort Cardiovascular: Regular Rate, Regular Rhythm GI/Abdominal Exam: Normal Bowel Sounds, Soft Extremities: Pedal Edema (trace). No: Darwin's Sign Skin: Warm, Dry, Intact Neurological: No New Focal Deficit Psy/Mental Status: Alert, Normal Affect, Normal Mood - Problem List & Annotations (1) Vaginal delivery SNOMED Code(s): 404892465 Code(s): O80 - ENCOUNTER FOR FULL-TERM UNCOMPLICATED DELIVERY Status: Acute Current Visit: Yes - Problem List Review Problem List Initiated/Reviewed/Updated: Yes - My Orders Last 24 Hours: My Active Orders 02/06/21 10:16 Ready for Discharge [RC] PER UNIT ROUTINE - Assessment Assessment:: 30 year old G1 now P1 female PPD2 s/p spontaneous vaginal delivery - Plan Plan:: Routine cares * Rh positive, rubella immune * GBS positive, s/p IV ampicillin during labor * Complicated social situation * Significant other was taken into custody for resisting arrest on the night of admission (02/03/2021) after he became agitated while on Labor and Delivery. Patient states that he has a history of mood disturbance and had not taken his medication in several days which he normally does well with. Per patient, he has a court hearing today. Patient's [id number] has remained at bedside and has been very supportive. She plans to stay in town and assist the patient with / cares for the next few weeks. Patient reports feeling safe at home and denies history of physical or mental harm from her partner. janitorial services supervisor consulted today to assist with discharge planning. Dispo: stable. May discharge to home today, will arrange rooming in as necessary since baby still on iv. Discharge instructions reviewed. Follow up at [facility] 4 weeks.
== END 2021-02-06 16:50 | disposition home or self-care (01) | DRG 560 ==
LOC: MW.OBCHECK 22:35 → MW.OB 22:37 → MW.OBCHECK 02-04 02:19 → MW.OB 02-04 02:21 → OBSVTOIN 02-04 23:32 → MW.OB 02-05 03:00
PROVIDERS: ADMIT Obstetrics & Gynecology; ATTEND Obstetrics & Gynecology
PROC: 10E0XZZ Delivery of Products of Conception, External Approach (ICD-10-PCS; principal; 2021-02-04)
PROC: 0KQM0ZZ Repair Perineum Muscle, Open Approach (ICD-10-PCS; 2021-02-04)
PROC: 3E0R3BZ Introduction of Anesthetic Agent into Spinal Canal, Percutaneous Approach (ICD-10-PCS; 2021-02-04)
PROC: 3E033VJ Introduction of Other Hormone into Peripheral Vein, Percutaneous Approach (ICD-10-PCS; 2021-02-04)
PROC: 10H07YZ Insertion of Other Device into Products of Conception, Via Natural or Artificial Opening (ICD-10-PCS; 2021-02-04)
PROC: 4A1HXCZ Monitoring of Products of Conception, Cardiac Rate, External Approach (ICD-10-PCS; 2021-02-04)
PROC: 3E0R3BZ Introduction of Anesthetic Agent into Spinal Canal, Percutaneous Approach (ICD-10-PCS; 2021-02-04)
DX: O48.0 Post-term pregnancy (principal); O99.824 Streptococcus B carrier state complicating childbirth; Z3A.40 40 weeks gestation of pregnancy; Z37.0 Single live birth; O70.1 Second degree perineal laceration during delivery; O76 Abnormality in fetal heart rate and rhythm complicating labor and delivery
CPT/HCPCS: 36415; 51702; 82803; 84112; 85014; 85018; 85027; 86156; 86592; 86850; 86900; 86901; A9270-GY; J0290; J2001; J2210; J2590; J2795; J3010; J3490; J7120

== ENCOUNTER 2021-07-31 18:44 | Emergency (ER) | payer SELFPAY | END 2021-07-31 21:10 | disposition left against medical advice (07) | LOC: MW.ED 18:44 | DX: Z53.21 Procedure and treatment not carried out due to patient leaving prior to being seen by health care provider (principal) ==

== ENCOUNTER 2021-09-22 14:25 | Emergency (ER) | payer BC ==
--- NOTE | 2021-09-22 14:48 | EDM.PDOC ---
ED HPI GENERAL MEDICAL PROBLEM - General Chief Complaint: General Stated Complaint: COVID SYMPTOMS Time Seen by Provider: 09/22/21 14:27 Source of Information: Reports: Patient History Limitations: Reports: No Limitations - History of Present Illness INITIAL COMMENTS - FREE TEXT/NARRATIVE: 31-year-old female no relevant past medical history presents for concern for Covid. 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 She notes that she is inadequately vaccinated with only 1 dose of Pfizer vaccination taken roughly 1 week ago. She notes a nonproductive cough. She denies chest pain or difficulty breathing. Denies fevers. Notes that her young daughter has similar symptoms. - Related Data Allergies Allergy/AdvReac Type Severity Reaction Status Date / Time No Known Allergies Allergy Verified 09/22/21 14:32 Home Meds: Home Meds . 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: Musculoskeletal History: Reports: None Neurological History: Reports: None Psychiatric History: Reports: None Endocrine/Metabolic History: Reports: None Hematologic History: Reports: None Immunologic History: Reports: None Oncologic (Cancer) History: Reports: None Dermatologic History: Reports: None - Infectious Disease History Infectious Disease History: Reports: None - Past Surgical History Head Surgeries/Procedures: Reports: None Cardiovascular Surgical History: Reports: None GI Surgical History: Reports: None Social & Family History - Family History Family Medical History: No Pertinent Family History - Caffeine Use Caffeine Use: Reports: None - Recreational Drug Use Recreational Drug Use: No ED ROS GENERAL - Review of Systems Review Of Systems: Comprehensive ROS is negative, except as noted in HPI. ED EXAM, GENERAL - Physical Exam Exam: See Below Exam Limited By: No Limitations General Appearance: Alert, WD/WN, No Apparent Distress Ears: Hearing Grossly Normal Throat/Mouth: Normal Voice, No Airway Compromise Head: Atraumatic, Normocephalic Respiratory/Chest: No Respiratory Distress, Lungs Clear, Normal Breath Sounds, No Accessory Muscle Use Cardiovascular: Normal Peripheral Pulses, Regular Rate, Rhythm Extremities: Normal Inspection Neurological: Alert, Normal Cognition, Normal Gait Psychiatric: Normal Affect, Normal Mood Course - Vital Signs Last Recorded V/S: Last Vital Signs Temp 96.8 F L 09/22/21 14:34 Pulse 96 09/22/21 14:34 Resp 18 09/22/21 14:34 BP 112/77 09/22/21 14:34 Pulse Ox 97 09/22/21 14:34 - Orders/Labs/Meds Labs: Laboratory Tests 09/22/21 Range/Units 14:36 Influenza Type A RNA NEGATIVE (NEGATIVE) Influenza Type B RNA NEGATIVE (NEGATIVE) SARS-CoV-2 RNA (RISHI) POSITIVE H (NEGATIVE) - Re-Assessments/Exams Free Text/Narrative Re-Assessment/Exam: 09/22/21 14:49 Patient symptoms are concerning for COVID-19. Patient does have normal vital signs, well-appearing, clear lungs. Will get Covid and influenza swabs and reassess. 09/22/21 15:35 Covid test is positive. Will discharge patient with quarantine instructions. Departure - Departure Time of Disposition: 15:36 Disposition: Admitted As Inpatient 67 Condition: Good Clinical Impression: COVID-19 - Discharge Information Instructions: COVID-19: What to Do If You Are Sick- [facility] (12/16/2020) Forms: ED Department Discharge Additional Instructions: Your COVID-19 test was positive. You should self isolate until cleared by the [facility]. A work note has been provided. If you develop difficulty breathing or chest pain then you should come back to the emergency department for reassessment. You can take acetaminophen (tylenol) 1000mg every 6 hours in addition to ibuprofen (motrin) every 6 hours as needed for fever/body aches. The following information is given to patients seen in the emergency department who are being discharged to home. This information is to outline your options for follow-up care. We provide all patients seen in our emergency department with a follow-up referral. The need for follow-up, as well as the timing and circumstances, are variable depending upon the specifics of your emergency department visit. If you don't have a primary care physician on staff, we will provide you with a referral. We always advise you to contact your personal physician following an emergency department visit to inform them of the circumstance of the visit and for follow-up with them and/or the need for any referrals to a consulting specialist. The emergency department will also refer you to a specialist when appropriate. This referral assures that you have the opportunity for follow-up care with a specialist. All of these measure are taken in an effort to provide you with optimal care, which includes your follow-up. Under all circumstances we always encourage you to contact your private physician who remains a resource for coordinating your care. When calling for follow-up care, please make the office aware that this follow-up is from your recent emergency room visit. If for any reason you are refused follow-up, please contact the [facility] Emergency Department at and asked to speak to the emergency department charge nurse. Please follow up with your primary care physician. If you do not have a primary care physician, see below: [facility] [address] [place] [id number] [facility] [address] [place] [address] [facility] [address] [place] [id number] Sepsis Event Note (ED) - Evaluation Sepsis Screening Result: No Definite Risk - Focused Exam Vital Signs: Vital Signs Temp Pulse Resp BP Pulse Ox 09/22/21 14:34 96.8 F L 96 18 112/77 97
[2021-09-22 15:27] LABS: CORONAVIRUS COVID-19 NAA POSITIVE (NEGATIVE); INFLUENZA A NAA NEGATIVE (NEGATIVE); INFLUENZA B NAA NEGATIVE (NEGATIVE)
== END 2021-09-22 16:04 | disposition home or self-care (01) ==
LOC: MW.ED 14:25
DX: U07.1 COVID-19 (principal)
CPT/HCPCS: 0240U; 99283